=== PATIENT | female | born 1960 | race Caucasian/White ===

== ENCOUNTER 2020-04-07 17:56 | Outpatient (CLI) | payer SELFPAY ==
[2020-04-07 20:23] LABS: Estmated Average Glucose 249; Hemoglobin A1C 10.3 % (4.0-6.0)
[2020-04-07 20:30] LABS: Alanine Aminotransferase 12 U/L (0-33); Albumin Level 4.6 g/dL (3.5-5.2); Alkaline Phosphatase 65 IU/L (35-105); Anion Gap 19.9 (5-19); Aspartate Amino Transferase 17 U/L (0-32); Blood Urea Nitrogen 12 mg/dL (6-20); Calcium 10.6 mg/dL (8.5-10.5); Carbon Dioxide 25 mmol/L (22-29); Chloride 97 mmol/L (98-107); Chol HDL Ratio 2.87 mg/dL (0.0-4.40); Cholesterol 132 mg/dL (0-200); Globulin 3.3 g/dL (1.3-4.6); Glomerular Filtration Rate 73.7 mL/min (90-130); Glucose 168 mg/dL (65-115); HDL Cholesterol 46 mg/dL (60-100); LDL Cholesterol Calculated 49 mg/dL (50-129); LDL HDL Ratio 1.07 RATIO (0.00-3.22); Osmolality Calculated 286 mOsm/kg (285-295); Potassium 3.9 mmol/L (3.5-5.1); Sodium 138 mmol/L (136-145); Thyroid Stimulating Hormone 2.46 uIU/mL (0.27-4.20); Total Bilirubin 0.4 mg/dL (0.15-1.2); Total Protein 7.9 g/dL (6.6-8.7); Triglycerides 185 mg/dL (0-150)
== END 2020-04-07 17:57 | disposition home or self-care (01) ==
LOC: LAB 17:57
PROVIDERS: Visit Provider General Practice
DX: E11.9 Type 2 diabetes mellitus without complications (principal); E78.5 Hyperlipidemia, unspecified
CPT/HCPCS: 80053; 80061; 83036; 84443

== ENCOUNTER 2020-08-04 15:41 | Outpatient (CLI) | payer SELFPAY ==
[2020-08-04 16:31] LABS: Estmated Average Glucose 209; Hemoglobin A1C 8.9 % (4.0-6.0)
[2020-08-04 16:32] LABS: Alanine Aminotransferase 13 U/L (0-33); Albumin Level 4.3 g/dL (3.5-5.2); Alkaline Phosphatase 66 IU/L (35-105); Anion Gap 16.9 (5-19); Aspartate Amino Transferase 19 U/L (0-32); Blood Urea Nitrogen 11 mg/dL (6-20); Calcium 9.3 mg/dL (8.5-10.5); Carbon Dioxide 26 mmol/L (22-29); Chloride 101 mmol/L (98-107); Chol HDL Ratio 2.47 mg/dL (0.0-4.40); Cholesterol 116 mg/dL (0-200); Globulin 3.2 g/dL (1.3-4.6); Glomerular Filtration Rate 85.6 mL/min (90-130); Glucose 231 mg/dL (65-115); HDL Cholesterol 47 mg/dL (60-100); LDL Cholesterol Calculated 30 mg/dL (50-129); LDL HDL Ratio 0.64 RATIO (0.00-3.22); Osmolality Calculated 297 mOsm/kg (285-295); Potassium 3.9 mmol/L (3.5-5.1); Sodium 140 mmol/L (136-145); Total Bilirubin 0.3 mg/dL (0.15-1.2); Total Protein 7.5 g/dL (6.6-8.7); Triglycerides 196 mg/dL (0-150)
== END 2020-08-04 15:42 | disposition home or self-care (01) ==
LOC: LAB 15:43
PROVIDERS: Visit Provider General Practice
DX: E11.9 Type 2 diabetes mellitus without complications (principal)
CPT/HCPCS: 80053; 80061; 83036; 84443

== ENCOUNTER 2022-04-25 13:41 | Outpatient (CLI) | payer MEDICAID, SELFPAY ==
--- NOTE | 2022-04-25 13:49 | MM_ITS ---
WS: [id number] Bilateral screening 3D tomosynthesis digital mammogram, 04/25/2022 Clinical Data: SCREEN Comparison: 09/26/2010. Findings: The breast parenchymal pattern shows fibroglandular tissue. No spiculated masses or clustered calcifi cations are seen. There are no secondary signs of carcinoma. MM/[place] [id number] Impression: 1. Negative bilateral mammogram unchanged. 2. Recommend annual screening mammograms. BIRADS: 1-Negative FOLLOW UP: 1 Year Follow-up The CAD dump grounds checker was used.
== END 2022-04-25 13:42 | disposition home or self-care (01) ==
LOC: RAD 13:43
PROVIDERS: PCP Family Medicine; Visit Provider Family Medicine
DX: Z12.31 Encounter for screening mammogram for malignant neoplasm of breast (principal)
CPT/HCPCS: 77063; 77067

== ENCOUNTER 2023-05-02 07:27 | Outpatient (CLI) | payer MEDICAID, SELFPAY ==
--- NOTE | 2023-05-02 07:44 | MM_ITS ---
WS: [id number] BILATERAL SCREENING DIGITAL TOMOSYNTHESIS MAMMOGRAM WITH CAD HISTORY: SCREENING COMPARISON: 04/25/2022, 09/26/2010 Bilateral CC and MLO views with tomosynthesis and synthetic mammography submitted. Computer aided det ection analyzed. Breast composition: There are scattered areas of fibroglandular density. No suspicious masses, microc alcifications or architectural distortion. MM/[id number] IMPRESSION: BI-RADS: 1-Negative FOLLOW UP: 1 Year Follow-up
== END 2023-05-02 07:28 | disposition home or self-care (01) ==
PROVIDERS: PCP Family Medicine; Visit Provider Family Medicine
DX: Z12.31 Encounter for screening mammogram for malignant neoplasm of breast (principal)
CPT/HCPCS: 77063; 77067

== ENCOUNTER 2023-05-18 11:57 | Emergency (ER) | payer MEDICAID, SELFPAY ==
[2023-05-18 12:00] VITALS: BP 183/80; PULSE 70; RESP 15; O2SAT 97
--- NOTE | 2023-05-18 12:20 | XRR_ITS ---
PROCEDURE INFORMATION: Exam: XR Chest Exam date and time: 05/18/2023 12:28 PM Age: 63 years old Clinical indication: Pain; Angina pectoris; Additional info: Chest pain TECHNIQUE: Imaging protocol: Radiologic exam of the chest. Views: 1 view. COMPARISON: CR XR thoracic spine 3V* [id number] 03/05/2019 7:14 PM FINDINGS: Lungs: Unremarkable. No consolidation. Pleural spaces: Unremarkable. No pleural effusion. No pneumothorax. Heart/Mediastinum: Unremarkable. No cardiomegaly. Bones/joints: Unremarkable. XR/XR chest 1V portable [id number] IMPRESSION: No acute findings.
--- NOTE | 2023-05-18 12:32 | ED_ITS ---
HPI - Neck Pain/Injury General: Chief Complaint: Neck Pain/Injury Stated Complaint: Left Arm and into chest pain Time Seen by Provider: 05/18/23 12:18 History of Present Illness: This patient is a 63 year old presenting with left arm numbness that goes up into her left chest and left neck. This started last night and has gotten worse. She has had numbness in her left arm from time to time, but never in her chest or neck. She also has a headache and just doesn't feel right. She feels extremely tired. She has diabetes, and her father of a heart attack in his 60's. She is on medication for cholesterol. She used to be on BP medicine, but says that her BP got too low and her doctor took her off BP medicine about three years ago. 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 She has not seen a doctor about the numbness in her arm. She also gets a fluttering feeling in the left rib area sometimes. [facility] ED PFSH: Medical History (Updated 05/18/23 @ 17:29 by Christine Washburn MD) Type 2 diabetes mellitus Family History (Updated 10/16/21 @ 09:49 by LIN Serrano) Mother Cancer Social History (Updated 10/19/21 @ 14:56 by LIN Serrano) Smoking and tobacco status: former smoker Adopted: No Marital status: Number of children: 5 service: No Physical Exam Const: COMMON NORMALS: no acute distress, patient oriented x3, no limitations and alert GENERAL APPEARANCE: cooperative and comfortable HENMT: HEAD & SCALP: normal to inspection FACE & SINUS: normal facial exam Eye: GENERAL EYE: appearance normal, both eyes and all related structures Neck/C-Spine: COMMON NORMALS: supple, no meningeal signs and no JVD Chest: COMMONS NORMALS: normal inspection of the chest Resp: COMMON NORMALS: normal respiratory effort, No use of accessory muscles and clear to auscultation bilaterally AUSCULTATION: clear to auscultation bilaterally Cardio: COMMON NORMALS: no JVD, regular rate, regular rhythm and No murmurs present (Cardio) RATE: regular rate RHYTHM: regular rhythm GI: COMMON NORMALS: Normal to inspection, nondistended, normoactive bowel sounds present, Soft to palpation and non-tender INSPECTION: Yes normal to inspection AUSCULTATION: Yes normoactive bowel sounds PALPATION: Yes Soft to palpation Back/Pelvis: COMMON NORMALS: thoracic and lumbar spine normal to inspection Extremity: COMMON NORMALS: normal to inspection Neuro: COMMON NORMALS: patient oriented x3, moves all extremities, no focal motor deficits and no sensory deficits noted SENSORIUM/ORIENTATION: Yes alert MENINGEAL SIGNS: Yes no meningeal signs Psych: COMMON NORMALS: mental status grossly normal, cooperative and normal affect Skin: COMMON NORMALS: no rashes or lesions noted and turgor normal GENERAL SKIN EXAM: no rashes or lesions noted and turgor normal Course Vital Signs: Vital signs: Vital Signs Pulse Rate 64 05/18/23 17:43 Respiratory Rate 16 05/18/23 17:43 Blood Pressure 154/82 05/18/23 17:43 Pulse Oximetry 98 05/18/23 17:43 Oxygen Delivery Me thod Room Air 05/18/23 17:38 MDM - Neck Pain/Injury Medical Decision Making 63 year old with multiple cardiac risk factors, and symptoms that could be related to cardiac ischemia. 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 EKG, troponins, CXR, baseline labs. Patient with normal troponins, CXR, labs. We discussed outpatient follow up for discussion of possible cardiac work up - given her risk factors - as well as further evaluation and treatment of her left arm symptoms. There is no neuro component to it today and I don't think that a CT or MR is needed tonight. Lab Data 05/18/23 12:38 05/18/23 13:09 Laboratory Results WBC 8.1 10^3/uL (4.0-10.0) 05/18/23 12:38 RBC 4.77 10^6/uL (4.1-5.3) 05/18/23 12:38 Hgb 12.9 g/dL (11.5-15.3) 05/18/23 12:38 Hct 43.8 % (37.0-47.0) 05/18/23 12:38 MCV 91.8 fl (81-99) 05/18/23 12:38 MCH 27.0 pg (28.0-34.0) L 05/18/23 12:38 MCHC 29.5 g/dL (30.0-36.0) L 05/18/23 12:38 RDW 14.3 % (12.1-15.1) 05/18/23 12:38 Plt Count 280 10^3/cmm (130-400) 05/18/23 12:38 MPV 10.1 fL (7.4-10.4) 05/18/23 12:38 Neut % (Auto) 42.7 % 05/18/23 12:38 Lymph % (Auto) 46.9 % 05/18/23 12:38 [place] % (Auto) 7.4 % 05/18/23 12:38 Eos % (Auto) 2.1 % 05/18/23 12:38 Baso % (Auto) 0.7 % 05/18/23 12:38 Neut # (Auto) 3.46 10^3/uL (1.8-7.7) 05/18/23 12:38 Lymph # (Auto) 3.8 10^3/uL (0.8-4.8) 05/18/23 12:38 [place] # (Auto) 0.6 10^3/uL (0.2-0.9) 05/18/23 12:38 Eos # (Auto) 0.2 10^3/uL (0.0-0.8) 05/18/23 12:38 Baso # (Auto) 0.1 10^3/uL (0.0-0.1) 05/18/23 12:38 Nucleated RBC % (auto) 0 % 05/18/23 12:38 Nucleated RBCs # 0.0 /100WBC 05/18/23 12:38 Sodium 136 mmol/L (136-145) 05/18/23 13:09 Potassium 3.6 mmol/L (3.5-5.1) 05/18/23 13:09 Chloride 99 mmol/L (98-107) 05/18/23 13:09 Carbon Dioxide 24 mmol/L (22-29) 05/18/23 13:09 Anion Gap 16.6 (5-19) 05/18/23 13:09 BUN 8 mg/dL (8-23) 05/18/23 13:09 Creatinine 0.7 mg/dL (0.5-0.9) 05/18/23 13:09 GFR Calculation 84.8 mL/min (90-130) L 05/18/23 13:09 Glucose 72 mg/dL (65-115) 05/18/23 13:09 Calculated Osmolality 279 mOsm/kg (285-295) L 05/18/23 13:09 Calcium 8.7 mg/dL (8.5-10.5) 05/18/23 13:09 Total Bilirubin 0.3 mg/dL (0.15-1.2) 05/18/23 13:09 AST 16 U/L (0-32) 05/18/23 13:09 ALT 11 U/L (0-33) 05/18/23 13:09 Alkaline Phosphatase 72 U/L (35-105) 05/18/23 13:09 Troponin T Baseline 7 ng/L (0-10) 05/18/23 13:09 Troponin T 120 Minute 7.60 ng/L (0-10) 05/18/23 15:04 Delta Troponin T 0.60 ABS# (0-10) 05/18/23 15:04 Total Protein 7.2 g/dL (6.6-8.7) 05/18/23 13:09 Albumin 4.0 g/dL (3.5-5.2) 05/18/23 13:09 Globulin 3.2 g/dL (1.3-4.6) 05/18/23 13:09 Lipase 123 U/L (13-60) H 05/18/23 13:09 Discharge Plan Discharge Patient Disposition: Home Clinical Impression: Chest pain, Type 2 diabetes mellitus, Cervical radiculopathy Condition: Stable Prescriptions: No Action cinnamon bark [Cinnamon] 500 mg capsule 500 mg PO BID aspirin 81 mg tablet,chewable 81 mg PO DAILY atorvastatin 40 mg tablet 40 mg PO DAILY glipizide 10 mg tablet 10 mg PO DAILY omeprazole 20 mg capsule,delayed release(DR/EC) 20 mg PO DAILY Januvia 100 mg tablet 100 mg PO DAILY Qty: 90 3RF Invokana 300 mg tablet 300 mg PO DAILY Qty: 90 3RF metformin 1,000 mg tablet 1,000 mg PO BID Discharge Orders: Discharge ED (Routine); Ordered 05/18/23 Ordered By: Christine Washburn Referrals: Jocelyn Dawkins MD [Primary Care Provider] - Patient Instructions: Opioid Safety, Pain Management Activity Restrictions/Additional Instructions: Follow up with your PCP for further evaluation of your arm numbness and possibly a cardiac evaluation and stress test. Coding Level of Care Code ED Cdl Instructor for Maylin Paul
[2023-05-18 12:45] VITALS: BP 187/86; PULSE 78; RESP 19; O2SAT 97
--- NOTE | 2023-05-18 12:45 | ECG_ITS ---
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 Measurements Intervals [place] Rate: 78 P: 48 [place]: 134 QRS: -45 QRSD: 93 T: 28 QT: 399 QTc: 456 Interpretive Statements SINUS RHYTHM LOW QRS VOLTAGE IN PRECORDIAL LEADS [QRS DEFLECTION < 1.0 mV IN CHEST LEADS] LEFT ANTERIOR FASCICULAR BLOCK [QRS AXIS <= -45, QR IN I, RS IN II] MINIMAL VOLTAGE CRITERIA FOR LVH, CONSIDER NORMAL VARIANT [MEETS CRITERIA IN ONE OF: R(aVL), S(V1), R(V5), R(V5/V6)+S(V1)] POSSIBLE ANTERIOR MYOCARDIAL INFARCTION , PROBABLY OLD [30 ms Q WAVE IN V3/V4, OR R < 0.2 mV IN V4] No previous ECG available for comparison Electronically Signed On 05-19-2023 9:41:25 CDT by Mitchell Villeda M.D. [id number]
[2023-05-18 12:54] LABS: Basophils # 0.1 10^3/uL (0.0-0.1); Basophils % 0.7 %; Eosinophils # 0.2 10^3/uL (0.0-0.8); Eosinophils % 2.1 %; Hematocrit 43.8 % (37.0-47.0); Hemoglobin 12.9 g/dL (11.5-15.3); Lymphocytes # 3.8 10^3/uL (0.8-4.8); Lymphocytes % 46.9 %; Mean Corpuscular HGB Conc 29.5 g/dL (30.0-36.0); Mean Corpuscular Volume 91.8 fl (81-99); Mean Platelet Volume 10.1 fL (7.4-10.4); Monocytes # 0.6 10^3/uL (0.2-0.9); Monocytes % 7.4 %; Neutrophils # 3.46 10^3/uL (1.8-7.7); Neutrophils % 42.7 %; Nucleated Red Blood Cells % 0 %; Platelet Count 280 10^3/cmm (130-400); Red Blood Count 4.77 10^6/uL (4.1-5.3); Red Cell Distribution Width 14.3 % (12.1-15.1); White Blood Count 8.1 10^3/uL (4.0-10.0)
[2023-05-18 13:37] LABS: Alanine Aminotransferase 11 U/L (0-33); Alkaline Phosphatase 72 U/L (35-105); Aspartate Amino Transferase 16 U/L (0-32); Blood Urea Nitrogen 8 mg/dL (8-23); Calcium 8.7 mg/dL (8.5-10.5); Carbon Dioxide 24 mmol/L (22-29); Chloride 99 mmol/L (98-107); Globulin 3.2 g/dL (1.3-4.6); Glomerular Filtration Rate 84.8 mL/min (90-130); Glucose 72 mg/dL (65-115); Lipase 123 U/L (13-60); Osmolality Calculated 279 mOsm/kg (285-295); Sodium 136 mmol/L (136-145); Total Bilirubin 0.3 mg/dL (0.15-1.2); Total Protein 7.2 g/dL (6.6-8.7)
[2023-05-18 13:38] LABS: Troponin(5th) Baseline 7 ng/L (0-10)
[2023-05-18 13:39] LABS: Anion Gap 16.6 (5-19); Potassium 3.6 mmol/L (3.5-5.1)
[2023-05-18 14:10] VITALS: BP 150/77; PULSE 65; RESP 17; O2SAT 97
--- NOTE | 2023-05-18 14:32 | ECG_ITS ---
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 Measurements Intervals [place] Rate: 67 P: -68 [place]: 90 QRS: -43 QRSD: 91 T: -14 QT: 391 QTc: 413 Interpretive Statements Low atrial RHYTHM LEFT AXIS DEVIATION [QRS AXIS < -30] LOW QRS VOLTAGE IN PRECORDIAL LEADS [QRS DEFLECTION < 1.0 mV IN CHEST LEADS] MINIMAL VOLTAGE CRITERIA FOR LVH, CONSIDER NORMAL VARIANT [MEETS CRITERIA IN ONE OF: R(aVL), S(V1), R(V5), R(V5/V6)+S(V1)] POSSIBLE ANTERIOR MYOCARDIAL INFARCTION , PROBABLY OLD [30 ms Q WAVE IN V3/V4, OR R < 0.2 mV IN V4] Compared to ECG 05/18/2023 12:45:23 Low atrial rhythm now present Left-axis deviation now present Sinus rhythm no longer present Left anterior fascicular block no longer present Myocardial infarct finding still present Electronically Signed On 05-19-2023 9:45:20 CDT by Mitchell Villeda M.D. [email or web address] centerCare [email or web address]/store/[id number]
[2023-05-18 16:12] VITALS: BP 133/76; PULSE 61; RESP 14; O2SAT 99
--- NOTE | 2023-05-18 16:43 | ECG_ITS ---
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 Measurements Intervals [place] Rate: 61 P: 46 [place]: 145 QRS: -42 QRSD: 94 T: -6 QT: 413 QTc: 416 Interpretive Statements SINUS RHYTHM MINIMAL VOLTAGE CRITERIA FOR LVH, CONSIDER NORMAL VARIANT [MEETS CRITERIA IN ONE OF: R(aVL), S(V1), R(V5), R(V5/V6)+S(V1)] POSSIBLE ANTERIOR MYOCARDIAL INFARCTION , PROBABLY OLD [30 ms Q WAVE IN V3/V4, OR R < 0.2 mV IN V4] INFERIOR MYOCARDIAL INFARCTION , PROBABLY OLD [40+ ms Q WAVE AND/OR ST/T ABNORMALITY IN II/aVF] Compared to ECG 05/18/2023 14:32:49 Left-axis deviation no longer present Myocardial infarct finding still present Electronically Signed On 05-19-2023 9:47:11 CDT by Mitchell Villeda M.D. [email or web address] [email or web address].Stepsss/store/OM/[id number]
[2023-05-18 17:38] VITALS: BP 154/82; PULSE 64; RESP 16; O2SAT 98
[2023-05-18 17:43] VITALS: BP 154/82; PULSE 64; RESP 16; O2SAT 98
== END 2023-05-18 17:45 | disposition home or self-care (01) ==
PROVIDERS: Emergency Provider Emergency Medicine; PCP Family Medicine
DX: M54.12 Radiculopathy, cervical region (principal); R07.9 Chest pain, unspecified; E11.9 Type 2 diabetes mellitus without complications; Z79.82 Long term (current) use of aspirin; Z79.84 Long term (current) use of oral hypoglycemic drugs; Z87.891 Personal history of nicotine dependence
CPT/HCPCS: 71045; 80053; 83690; 84484; 85025; 93005; 99285

== ENCOUNTER 2023-06-06 11:48 | Outpatient (CLI) | payer MEDICAID, SELFPAY ==
--- NOTE | 2023-06-06 | ECG_ITS ---
[facility] Test Date: 2023-06-06 Pat Name: Carolin Kelly Department: Room: Gender: Female Hunter Guide: : 1960 Requested By: Jocelyn Nichole Order Number: [id number] Montenegro MD: Luis Gutiérrez M.D. Interpretive Statements NAME OF STUDY: TREADMILL STRESS TEST INDICATION: [Chest Pain, ] EXERCISE DATA: The patient was exercised by Will protocol. Baseline heart rate was 74 beats per minute. Baseline blood pressure was 145/77 millimeters of mercury. Target heart rate was 134 beats per minute. Maximum heart rate achieved was 158, which was 117% of the target heart rate. Maximum blood pressure was 210/54 millimeters of mercury. Total exercise time was 5 minutes 19 minutes. Maximum METs achieved was 7. The reason for ending the test was completion of protocol. The patient complained of shortness of breath during the stress test, which then resolved at the end of the test. ELECTROCARDIOGRAM: BASELINE: Showed sinus rhythm, left axis deviation, no significant ST-T changes at the baseline noted. [] EXERCISE: At the peak exercise level, [] No significant ST-T changes suggestive of ischemia noted. [] RECOVERY: During the recovery period, heart rate dropped appropriately. No significant ST-T changes in the recovery suggestive of ischemia noted. [] CONCLUSION: 1. Exercise capacity is fair. 2. Heart rate response was appropriate 3. Blood pressure response was hypertensive 4. Symptoms not suggestive of ischemia. 5. Stress test negative for ischemia Electronically Signed On 07-02-2023 10:55:37 CDT by Luis Gutiérrez M.D. [email or web address].[employer]/store/OM/[id number]
[2023-06-06 12:17] VITALS: BMI 33.6
[2023-06-06 12:48] VITALS: BP 186/76; PULSE 83
== END 2023-06-06 11:49 | disposition home or self-care (01) ==
LOC: CDL 11:49
PROVIDERS: PCP Family Medicine; Visit Provider Family Medicine
DX: R07.9 Chest pain, unspecified (principal)
CPT/HCPCS: 93017

== ENCOUNTER 2024-03-24 15:20 | Inpatient (IN) | payer MEDICAID, SELFPAY ==
[2024-03-24] VITALS (10 sets, daily range): BP systolic 136–150; BP diastolic 61–70; PULSE 72–104; RESP 16–18; TEMP 37.1–39.6; O2SAT 94–98; BMI 30.4
--- NOTE | 2024-03-24 15:21 | XRR_ITS ---
PROCEDURE INFORMATION: Exam: XR Chest Exam date and time: 03/24/2024 3:41 PM Age: 63 years old Clinical indication: Cough and dyspnea; Additional info: Dyspnea/cough TECHNIQUE: Imaging protocol: Radiologic exam of the chest. Views: 1 view. COMPARISON: CR XR chest 1V portable [id number] 05/18/2023 12:28 PM FINDINGS: Lungs: Suboptimal pulmonary expansion with associated accentuation of bronchovascular markings. Pleural spaces: No pleural effusion or pneumothorax. Heart/Mediastinum: Unremarkable. Bones/joints: No significant pathology. XR/XR chest 1V portable [id number] IMPRESSION: No acute pathology or significant change given incomplete pulmonary expansion.
--- NOTE | 2024-03-24 15:23 | W.ED.GENADLT ---
HPI - General Adult General: Chief complaint: Back Pain/Injury Stated complaint: Weakness, Back pain, Fever Time Seen by Provider: 03/24/24 15:21 Source: patient Mode of arrival: EMS History of Present Illness: 61-year-old female presents emergency room with complaints of generalized weakness. Was seen in the local walk-in clinic was trying to go to the bathroom became weak complaining of lower abdominal pain, no back or flank pain. Denies dysuria urgency or frequency. She presents with a fever she fell 1 week ago in the bathroom was weak and progressively worse since then. Worsening low back pain. She reports abdominal pain for the last couple of weeks. History of recurrent UTIs. Presents with a fever today of 103.2. MD complaint: Suprapubic pain Severity: mild Relieving factors: none Exacerbating factors: none Associated symptoms: Deny chest pain, dyspnea or rash Review of Systems Const: Denies: fever(s) or chills Card: Denies: chest pain Resp: Denies: dyspnea GI: Denies: abdominal pain : Denies: dysuria, urinary frequency or urinary urgency Musc: Denies: neck pain or back pain Skin/Breast: Denies: rash PFSH ED PFSH: Medical History Type 2 diabetes mellitus Family History Mother Cancer Social History Smoking and tobacco/nicotine status: former use of tobacco/nicotine Adopted: No Marital status: Number of children: 5 service: No Physical Exam Const: COMMON NORMALS: no acute distress GENERAL APPEARANCE: cooperative and comfortable ORIENTATION/CONSCIOUSNESS: Yes awake, Yes oriented to person, Yes oriented to place and Yes oriented to time HENMT: COMMON NORMALS: normocephalic, atraumatic and hearing grossly normal bilaterally HEAD & SCALP: normocephalic and atraumatic Resp: COMMON NORMALS: normal respiratory effort, No retractions, No use of accessory muscles and clear to auscultation bilaterally AUSCULTATION: clear to auscultation bilaterally Cardio: COMMON NORMALS: regular rate, regular rhythm and No murmurs present (Cardio) RATE: regular rate RHYTHM: regular rhythm GI: COMMON NORMALS: Soft to palpation and No hepatosplenomegaly present AUSCULTATION: Yes normoactive bowel sounds PALPATION: Yes Soft to palpation, No Tenderness to palpation present (GI), No Guarding due to palpation present (GI) and Yes No hepatosplenomegaly present Extremity: COMMON NORMALS: normal to inspection, capillary refill normal, no clubbing, cyanosis or edema, no calf tenderness and no pedal edema Neuro: SENSORIUM/ORIENTATION: Yes oriented to person, Yes oriented to place and Yes oriented to time Skin: COMMON NORMALS: no rashes or lesions noted GENERAL SKIN EXAM: no rashes or lesions noted Course Vital Signs: Vital signs: Vital Signs Temperature 103.2 F H 03/24/24 15:21 Pulse Rate 96 03/24/24 17:02 Respiratory Rate 18 03/24/24 15:40 Blood Pressure 145/66 03/24/24 17:02 Pulse Oximetry 96 03/24/24 17:02 Oxygen Delivery Me thod Room Air 03/24/24 17:02 [facility] - General Adult Medical Decision Making Patient has pyelonephritis with leukocytosis and radiographic findings consistent with pyelonephritis as well as a fever mildly elevated lactic acid slight hyponatremia. Cultures done patient has had fluid bolus started on IV Rocephin. Lab Data 03/24/24 15:10 03/24/24 15:10 Radiology Impressions Chest X-Ray 03/24/24 15:21 IMPRESSION: No acute pathology or significant change given incomplete pulmonary expansion. Abdomen/Pelvis CT 03/24/24 15:58 IMPRESSION: 1. Asymmetric infiltration of fat in the left perinephric and periureteral regions with mural thickening of the left renal pelvis. Findings suggesting possible upper urinary tract infection although component of residual changes from prior insult cannot be excluded. 2. Cholelithiasis. 3. Hepatic steatosis. 4. Large fat containing umbilical hernia. 5. Large amount of colonic stool. Laboratory Results WBC 15.61 10^3/uL (3.29-11.43) H 03/24/24 15:10 RBC 3.86 10^6/uL (3.85-5.65) 03/24/24 15:10 Hgb 10.30 g/dL (11.27-16.99) L 03/24/24 15:10 Hct 32.9 % (36-47) L 03/24/24 15:10 MCV 85.2 fl (85-98) 03/24/24 15:10 MCH 26.7 pg (27-33) L 03/24/24 15:10 MCHC 31.3 g/dL (30-55) 03/24/24 15:10 RDW 16.4 % (12.1-15.1) H 03/24/24 15:10 Plt Count 345 10^3/cmm (157-399) 03/24/24 15:10 MPV 9.1 fL (7.4-10.4) 03/24/24 15:10 Neut % (Auto) 78.1 % 03/24/24 15:10 Lymph % (Auto) 11.9 % 03/24/24 15:10 [place] % (Auto) 9.0 % 03/24/24 15:10 Eos % (Auto) 0.0 % 03/24/24 15:10 Baso % (Auto) 0.4 % 03/24/24 15:10 Neut # (Auto) 12.18 10^3/uL (1.8-7.7) H 03/24/24 15:10 Lymph # (Auto) 1.9 10^3/uL (0.8-4.8) 03/24/24 15:10 [place] # (Auto) 1.4 10^3/uL (0.2-0.9) H 03/24/24 15:10 Eos # (Auto) 0.0 10^3/uL (0.0-0.8) 03/24/24 15:10 Baso # (Auto) 0.1 10^3/uL (0.0-0.1) 03/24/24 15:10 Nucleated RBC % (auto) 0 % 03/24/24 15:10 Nucleated RBCs # 0.0 /100WBC 03/24/24 15:10 Sodium 132 mmol/L (136-145) L 03/24/24 15:10 Potassium 3.9 mmol/L (3.5-5.1) 03/24/24 15:10 Chloride 95 mmol/L (98-107) L 03/24/24 15:10 Carbon Dioxide 22 mmol/L (22-29) 03/24/24 15:10 Anion Gap 18.9 (5-19) 03/24/24 15:10 BUN 14 mg/dL (8-23) 03/24/24 15:10 Creatinine 1.0 mg/dL (0.5-0.9) H 03/24/24 15:10 GFR Calculation 56.2 mL/min (90-130) L 03/24/24 15:10 Glucose 148 mg/dL (65-115) H 03/24/24 15:10 Calculated Osmolality 277 mOsm/kg (285-295) L 03/24/24 15:10 Lactic Acid 2.5 mmol/L (0.5-2.2) H 03/24/24 15:10 Calcium 9.1 mg/dL (8.5-10.5) 03/24/24 15:10 Total Bilirubin 0.4 mg/dL (0.15-1.2) 03/24/24 15:10 AST 11 U/L (0-32) 03/24/24 15:10 ALT 9 U/L (0-33) 03/24/24 15:10 Alkaline Phosphatase 75 U/L (35-105) 03/24/24 15:10 Troponin T Baseline 12 ng/L (0-10) H 03/24/24 15:10 Total Protein 7.7 g/dL (6.6-8.7) 03/24/24 15:10 Albumin 3.8 g/dL (3.5-5.2) 03/24/24 15:10 Globulin 3.9 g/dL (1.3-4.6) 03/24/24 15:10 Lipase 19 U/L (13-60) 03/24/24 15:10 Urine Color Yellow (Yellow) 03/24/24 16:12 Urine Appearance Hazy (CLEAR) A 03/24/24 16:12 Urine pH 5 (5-7) 03/24/24 16:12 Ur Specific [place] 1.015 (1.005-1.030) 03/24/24 16:12 Urine Protein Trace (Negative) 03/24/24 16:12 Urine Glucose (UA) 4+ (Normal) H 03/24/24 16:12 Urine Ketones 1+ (Negative) H 03/24/24 16:12 Urine Blood 3+ (Negative) H 03/24/24 16:12 Urine Nitrate Positive (Negative) H 03/24/24 16:12 Urine Bilirubin Neg (Negative) 03/24/24 16:12 Urine Urobilinogen Norm mg/dL (Negative) 03/24/24 16:12 Ur Leukocyte Esterase 1+ (Negative) H 03/24/24 16:12 Urine RBC 0-4 /hpf (0-2) H 03/24/24 16:12 Urine WBC 40-55 /hpf (0-5) H 03/24/24 16:12 Ur Squamous Epith Cells 5-10 /hpf (0-5) H 03/24/24 16:12 Amorphous Sediment Not Reportable 03/24/24 16:12 Urine Bacteria 3+ /hpf (NONE) H 03/24/24 16:12 Urine Mucus Trace /hpf 03/24/24 16:12 All radiology interpretation(s) finalized by discharge Discharge Plan Discharge Patient Disposition: Admitted As Inpatient Clinical Impression: Pyelonephritis Prescriptions: No Action cinnamon bark [Cinnamon] 500 mg capsule 500 mg PO BID aspirin 81 mg tablet,chewable 81 mg PO DAILY atorvastatin 40 mg tablet 40 mg PO DAILY glipizide 10 mg tablet 10 mg PO DAILY omeprazole 20 mg capsule,delayed release(DR/EC) 20 mg PO DAILY Januvia 100 mg tablet 100 mg PO DAILY Qty: 90 3RF Invokana 300 mg tablet 300 mg PO DAILY Qty: 90 3RF metformin 1,000 mg tablet 1,000 mg PO BID Referrals: Jocelyn Dawkins MD [Primary Care Provider] - Coding Level of Care Code ED Pressroom Worker for Maylin Paul
[2024-03-24 15:41] LABS: Basophils # 0.1 10^3/uL (0.0-0.1); Basophils % 0.4 %; Hematocrit 32.9 % (36-47); Lymphocytes # 1.9 10^3/uL (0.8-4.8); Lymphocytes % 11.9 %; Mean Corpuscular HGB Conc 31.3 g/dL (30-55); Mean Corpuscular Hemoglobin 26.7 pg (27-33); Mean Corpuscular Volume 85.2 fl (85-98); Mean Platelet Volume 9.1 fL (7.4-10.4); Monocytes # 1.4 10^3/uL (0.2-0.9); Neutrophils # 12.18 10^3/uL (1.8-7.7); Neutrophils % 78.1 %; Nucleated Red Blood Cells % 0 %; Platelet Count 345 10^3/cmm (157-399); Red Blood Count 3.86 10^6/uL (3.85-5.65); Red Cell Distribution Width 16.4 % (12.1-15.1); White Blood Count 15.61 10^3/uL (3.29-11.43)
--- NOTE | 2024-03-24 15:58 | ECG_ITS ---
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 Measurements Intervals [place] Rate: 98 P: 53 [place]: 134 QRS: -43 QRSD: 89 T: 28 QT: 338 QTc: 432 Interpretive Statements SINUS RHYTHM LEFT AXIS DEVIATION [QRS AXIS < -30] LOW QRS VOLTAGE IN PRECORDIAL LEADS [QRS DEFLECTION < 1.0 mV IN CHEST LEADS] POSSIBLE ANTERIOR MYOCARDIAL INFARCTION , PROBABLY OLD [30 ms Q WAVE IN V3/V4, OR R < 0.2 mV IN V4] Compared to ECG 05/18/2023 16:43:11 Left-axis deviation now present Low QRS voltage now present Myocardial infarct finding still present Electronically Signed On 03-24-2024 17:46:57 CDT by Luis Gutiérrez M.D. [email or web address].[email or web address]/store/[id number]
--- NOTE | 2024-03-24 15:58 | CTR_ITS ---
PROCEDURE INFORMATION: Exam: CT Abdomen And Pelvis Without Contrast Exam date and time: 03/24/2024 4:13 PM Age: 63 years old Clinical indication: Abdominal pain; Localized; Lower; Prior surgery; Surgery date: 6+ months; Surgery type: Tubal; Additional info: Abdominal pain/fever TECHNIQUE: Imaging protocol: Computed tomography of the abdomen and pelvis without contrast. Radiation optimization: All CT scans at this facility use at least one of these dose optimization techniques: automated exposure control; mA and/or kV adjustment per patient size (includes targeted exams where dose is matched to clinical indication); or iterative reconstruction. COMPARISON: CR XR chest 1V portable [id number] 03/24/2024 3:41 PM RADIATION DOSE METRICS: Total DLP (mGy-cm): 728.28 FINDINGS: Lungs: Mild basilar scar versus atelectasis. Esophagus: Mural thickening distal thoracic esophagus. Liver: Hepatic steatosis. Hepatic cysts and indeterminate subcentimeter hepatic hypodensities are present. Gallbladder and bile ducts: Cholelithiasis. No biliary dilatation. Pancreas: No significant pancreatic pathology. Spleen: No significant splenic pathology. Adrenal glands: Low-attenuation adrenal thickening in a pattern most consistent with adenomatous changes. Kidneys and ureters: Right kidney is unremarkable. There is asymmetric left perinephric fat infiltration and left periureteral fat infiltration without evidence of calculus or obstruction. There is mural thickening of the left renal pelvis without discrete mass. Stomach and bowel: Large amount of colonic stool. Appendix: Appendix within normal limits. Intraperitoneal space: No ascites. Vasculature: No abdominal aortic aneurysm. Lymph nodes: No evidence of lymphadenopathy. Urinary bladder: Incomplete bladder distension limiting assessment of the wall. Reproductive: No significant uterine pathology. No significant adnexal pathology. Bones/joints: Grade 1 anterolisthesis of L4 on L5 with degenerative facet disease lower lumbar spine. Soft tissues: Large fat containing umbilical hernia. CT/CT abdomen pelvis wo con [id number] IMPRESSION: 1. Asymmetric infiltration of fat in the left perinephric and periureteral regions with mural thickening of the left renal pelvis. Findings suggesting possible upper urinary tract infection although component of residual changes from prior insult cannot be excluded. 2. Cholelithiasis. 3. Hepatic steatosis. 4. Large fat containing umbilical hernia. 5. Large amount of colonic stool.
[2024-03-24 15:59] LABS: Alanine Aminotransferase 9 U/L (0-33); Albumin Level 3.8 g/dL (3.5-5.2); Alkaline Phosphatase 75 U/L (35-105); Anion Gap 18.9 (5-19); Aspartate Amino Transferase 11 U/L (0-32); Blood Urea Nitrogen 14 mg/dL (8-23); Calcium 9.1 mg/dL (8.5-10.5); Carbon Dioxide 22 mmol/L (22-29); Chloride 95 mmol/L (98-107); Creatinine Clr Calc Pharmacy 59.7938; Globulin 3.9 g/dL (1.3-4.6); Glomerular Filtration Rate 56.2 mL/min (90-130); Glucose 148 mg/dL (65-115); Lipase 19 U/L (13-60); Osmolality Calculated 277 mOsm/kg (285-295); Potassium 3.9 mmol/L (3.5-5.1); Sodium 132 mmol/L (136-145); Total Bilirubin 0.4 mg/dL (0.15-1.2); Total Protein 7.7 g/dL (6.6-8.7)
[2024-03-24 16:00] LABS: Lactic Sepsis W/Reflex 2.5 mmol/L (0.5-2.2); Troponin(5th) Baseline 12 ng/L (0-10)
[2024-03-24 16:46] LABS: Add Urine Microscopic? YES; Bilirubin Urine Neg (Negative); Blood Urine 3+ (Negative); Glucose Urine UA 4+ (Normal); Ketones Urine 1+ (Negative); Leukocyte Esterase Urine 1+ (Negative); Nitrate Urine Positive (Negative); Protein Urine Trace (Negative); Specific Gravity, Urine 1.015 (1.005-1.030); Urine Appearance Hazy (CLEAR); Urine Color Yellow (Yellow); Urobilinogen Urine Norm (Negative); pH Urine 5 (5-7)
[2024-03-24 16:57] LABS: RBC Urine 0-4 /hpf (0-2); WBC Urine 40-55 /hpf (0-5)
[2024-03-24 16:58] LABS: Add Urine Culture? Yes; Bacteria Urine 3+ /hpf; Mucus Urine TRACE /hpf
[2024-03-24] MEDS: cefTRIAXone 2,000 MG in sodium chloride 0.9% (plus) 50 ML 100 MG IV (17:03)
[2024-03-24 17:25] LABS: Reflex Lactate Order REFLEX LACTIC ORDERD
--- NOTE | 2024-03-24 17:37 | ECG_ITS ---
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 Measurements Intervals [place] Rate: 87 P: 57 NM: 130 QRS: -46 QRSD: 94 T: 29 QT: 373 QTc: 449 Interpretive Statements SINUS RHYTHM PATTERN CONSISTENT WITH PULMONARY DISEASE LEFT ANTERIOR FASCICULAR BLOCK [QRS AXIS <= -45, QR IN I, RS IN II] Compared to ECG 03/24/2024 15:58:00 Left anterior fascicular block now present Left-axis deviation no longer present Myocardial infarct finding no longer present Electronically Signed On 03-24-2024 17:48:16 CDT by Luis Gutiérrez M.D. [id number]
--- NOTE | 2024-03-24 17:42 | P.HP_ITS ---
Providers/Chief Complaint 2 Primary Care Provider: Jocelyn Dawkins MD Chief Complaint: Weakness, Back pain, Fever History of Present Illness Carolin Kelly is a 63 year old female with past medical history of type 2 diabetes mellitus presented to the ER because of generalized weakness, tiredness along with recurrent episodes of falls happening over the last 1 week along with back pain and mild dysuria. Patient states generally she is pretty independent able to take care of her ADLs but for last 1 week has been gradually getting weaker with few episodes of fall. Denies any head injuries or weakness in any of the arms. Complaining of lower back pain. Denies any nausea, vomiting, headache, dizziness, diarrhea, dysuria, poor appetite no recent sick contacts. In the ER there was a concern for UTI pyelonephritis hence medicine was consulted. She was found to have a fever of more than 103.2 Fahrenheit, leukocytosis. She has been given IV ceftriaxone Tylenol in the ER. Review of Systems 2 General: Reports: 10 or more systems reviewed and unremarkable except in HPI and below Const: Denies: fever(s), chills, body aches, change in appetite, change in weight, malaise, night sweats, diaphoresis, change in sleep pattern, daytime sleepiness or snoring Eyes: Denies: change in vision, blurry vision, photophobia, eye discomfort or eye discharge ENMT: Denies: throat pain, enlarged tonsils, hoarseness, mouth pain, oral sores, dry mouth, tinnitus, nasal congestion or post nasal drip Card: Denies: chest pain, palpitations, irregular heart rhythm, edema, swelling of feet/ankles, lightheadedness, syncope, pre-syncope, dyspnea on exertion, orthopnea, leg pain with exertion or acrocyanosis Resp: Denies: dyspnea, productive cough, non-productive cough, wheezing, stridor, pain on inspiration, change in phlegm color, hemoptysis or chest congestion GI: Denies: abdominal pain, nausea, vomiting, hematemesis, coffee ground emesis, dysphagia, heartburn, diarrhea, constipation, bloating, GI cramping, change in bowel habits, pain on defecation, hematochezia or melena : Denies: flank pain, dysuria, urinary frequency, urinary urgency, urinary hesitancy, nocturia or hematuria Musc: Denies: neck pain, back pain, extremity pain, joint pain, joint swelling, joint redness, joint stiffness or limited range of motion Neuro: Denies: headache(s), numbness in extremities, weakness in extremities, sensory changes, lack of coordination, difficulty walking, frequent falls, dizziness, vertigo, confusion, Slurred speech present, difficulty communicating thoughts or seizure-like activity Psych: Denies: anxiety, depression, mood swings, panic attacks, hopelessness or irritability Endo: Denies: polyuria, polydipsia, tired all the time, cold intolerance, excessive sweating, flushing or heat intolerance Mario/Lymph: Denies: easy bruising or easy bleeding All/Imm: Denies: tongue swelling, facial swelling or acute wheezing Medications/Allergies Home Medications Medication Instructions Recorded Confirmed Last Taken Type aspirin 81 mg chewable tablet 81 mg PO DAILY 10/16/21 05/18/23 05/18/23 History atorvastatin 40 mg tablet 40 mg PO DAILY 10/16/21 05/18/23 05/18/23 History cinnamon bark 500 mg capsule 500 mg PO BID 10/16/21 05/18/23 05/18/23 History (Cinnamon) glipizide 10 mg tablet 10 mg PO DAILY 10/16/21 05/18/23 05/18/23 History canagliflozin 300 mg tablet 300 mg PO DAILY #90 tabs 10/19/21 05/18/23 05/18/23 Rx (Invokana) omeprazole 20 mg capsule,delayed 20 mg PO DAILY 10/19/21 05/18/23 05/18/23 History release sitagliptin phosphate 100 mg 100 mg PO DAILY #90 tabs 10/19/21 05/18/23 05/18/23 Rx tablet (Januvia) metformin 1,000 mg tablet 1,000 mg PO BID 05/18/23 05/18/23 05/18/23 History Allergies Allergy/AdvReac Type Severity Reaction Status Date / Time Sulfa (Sulfonamide Allergy Severe rash Verified 05/18/23 12:06 Antibiotics) PFSH Acute 2 PFSH: Medical History Type 2 diabetes mellitus Family History Mother Cancer Social History Smoking and tobacco/nicotine status: former use of tobacco/nicotine Adopted: No Marital status: Number of children: 5 service: No Vitals/I&O/Wt Last Vital Signs Temp 103.2 F H 03/24/24 15:21 Pulse 96 03/24/24 17:02 Resp 18 03/24/24 15:40 BP 145/66 03/24/24 17:02 Pulse Ox 96 03/24/24 17:02 O2 Del Method Room Air 03/24/24 17:02 Weight last 48 hrs Weight 80.286 kg Physical Exam 2 Narrative: General: No acute distress, AO x3 HEENT: PERRLA, pupils bilaterally equal and reactive Chest: Normal vesicular breath sounds, no added sounds, equal good air entry bilaterally CVS: S1-S2 regular, no murmurs, no tachycardia, no gallops, no rubs Abdomen: Soft, nontender, no organomegaly, bowel sounds present Neuro: No focal deficits, no facial deformity, AO x3, power 5/5 in all limbs Quick SOFA Score: Respiratory Rate: 17 Blood Pressure: 144/69 Isaac Coma Scale: 15 qSOFA Score: 0 If qSOFA score 2 or greater, continue: Blood Pressure Mean: 94 Bilirubin (mg/dl): 0.4 Platelets (x10?/ml): 345 Creatinine (mg/dl): 1.0 Evaluation: Current stage of sepsis: sepsis Sepsis stage criteria used: CMS Sep-1 and Sepsis-3 Crystalloid fluids: less than 30 mL/kg crystalloid fluids ordered Blood cultures ordered: Yes Possible source: genitourinary Focused Exam: Vital signs: Temp Pulse Resp BP Pulse Ox O2 Del Method 03/24/24 20:40 98.7 F 75 17 144/69 98 03/24/24 20:19 80 17 138/70 98 03/24/24 18:03 89 136/61 97 Room Air 03/24/24 17:02 96 145/66 96 Room Air 03/24/24 15:40 104 H 18 145/66 94 Room Air 03/24/24 15:21 103.2 F H 99 16 150/68 96 Room Air Capillary refill: < 3 Seconds Peripheral pulse strength: 3+ Normal P eripheral pulse location: Radial Skin exam: Yes no rashes or lesions noted Date exam was performed: 03/24/24 Time exam was performed: 16:30 2 Sepsis Screen No Definite Risk 03/24/24 18:03 Respiratory Rate 17 breaths/min (12 - 18) 03/24/24 20:40 Blood Pressure 144/69 mmHg 03/24/24 20:40 [place] Coma Scale Score 15 03/24/24 20:42 Quick SOFA Score 0 03/24/24 22:23 SOFA Score: 2 Isaac Coma Scale Score 15 03/24/24 20:42 Blood Pressure Mean 94 mmHg 03/24/24 20:40 Total Bilirubin 0.4 mg/dL (0.15-1.2) 03/24/24 15:10 Platelet Count 345 10^3/cmm (157-399) 03/24/24 15:10 Creatinine 1.0 mg/dL (0.5-0.9) H 03/24/24 15:10 Data 03/24/24 15:10 03/24/24 15:10 Micro: Microbiology 03/24/24 16:25 Blood Culture - Preliminary Blood SPECIMEN COLLECTED 03/24/24 16:20 Blood Culture - Preliminary Blood SPECIMEN COLLECTED A&P Assessment and plan (1) Pyelonephritis: As seen on CT imaging done in the ER. Appreciate urinalysis. Check blood culture, urine culture. Empirically start patient IV ceftriaxone 1 g daily. Will de-escalate antibiotics as per culture results. (2) Sepsis: SIRS: Tachycardic, Febrile, Leukocytosis Source: UTI/pyelonephritis End organ damage: Acute kidney injury Lactic acid elevated. Normalizing after 2 hours. Patient did not receive full 30 mL/kg BW as patient has remained hemodynamically stable with lactate coming down with IV fluid at 75 cc/h. Monitor blood pressures. Keep mean artery pressure 65 mmHg. Blood culture, urine culture, procalcitonin, urine Legionella, bacterial antigen. De-escalate antibiotics as per culture results. (3) BOZENA (acute kidney injury): Baseline creatinine from 0.7. Currently elevated to 1.0. Most likely in setting of dehydration and sepsis. IV fluid as above. Monitor BMP daily for now. Medical reconciliation done for nephrotoxic drugs. (4) Adenovirus infection: Supportive care. Monitor oxygen saturation. If needed will start on nebulization treatment and steroids. (5) Fall: Most likely in setting of generalized weakness from UTI. Check respiratory viral panel. Physical therapy evaluation. Denies any head injuries. (6) Type 2 diabetes mellitus: Check A1c. Carb consistent diet Insulin sliding scale at low-dose protocol. Hold off on OHA's. (7) Lactic acid increased: (8) Weakness: Plan Full code Lovenox for DVT prophylaxis Carb consistent diet Protonix for PUD prophylaxis Attestations 2 Medical Necessity Statement*: Admission for more than 2 midnights for management of sepsis in setting of UTI/pyelonephritis, recurrent falls in setting of generalized weakness, adenovirus infection Diagnoses BOZENA (acute kidney injury) N17.9 Pyelonephritis N12 Sepsis A41.9 Lactic acid increased E87.20 Weakness R53.1 Fall W19.XXXA Adenovirus infection B34.0 Type 2 diabetes mellitus E11.9
[2024-03-24 17:46] LABS: Adenovirus Detected (NOT DETECT); Chlamydia Pneumoniae Not Detected (NOT DETECT); Coronavirus 229E,HKU1,NL63,OC4 Not Detected (NOT DETECT); Human Metapneumovirus Not Detected (NOT DETECT); Human Rhinovirus/Enterovirus Not Detected (NOT DETECT); Influenza A Not Detected (NOT DETECT); Influenza A H1 Not Detected (NOT DETECT); Influenza A H1-2009 Not Detected (NOT DETECT); Influenza A H3 Not Detected (NOT DETECT); Influenza B Not Detected (NOT DETECT); Mycoplasma Pneumoniae Not Detected (NOT DETECT); Parainfluenza Virus Type 1 Not Detected (NOT DETECT); Parainfluenza Virus Type 2 Not Detected (NOT DETECT); Parainfluenza Virus Type 3 Not Detected (NOT DETECT); Parainfluenza Virus Type 4 Not Detected (NOT DETECT); Respiratory Syncytial Virus A Not Detected (NOT DETECT); Respiratory Syncytial Virus B Not Detected (NOT DETECT); SARS-COV-2 Not Detected (NOT DETECT)
[2024-03-24] MEDS: acetaminophen 500 mg Tablet 1000 MG PO (18:15)
[2024-03-24 18:47] LABS: Troponin 5 2HR 9.86 ng/L (0-10)
[2024-03-24 18:48] LABS: Lactic Acid level (Lactate) 0.9 mmol/L (0.5-2.2)
[2024-03-24 18:49] LABS: Troponin 5 2HR Delta -2.14 ABS# (0-10)
--- NOTE | 2024-03-24 21:27 | ECG_ITS ---
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 Measurements Intervals [place] Rate: 78 P: 39 AR: 130 QRS: -39 QRSD: 96 T: 5 QT: 402 QTc: 459 Interpretive Statements SINUS RHYTHM LEFT AXIS DEVIATION [QRS AXIS < -30] LOW QRS VOLTAGE IN PRECORDIAL LEADS [QRS DEFLECTION < 1.0 mV IN CHEST LEADS] MINIMAL VOLTAGE CRITERIA FOR LVH, CONSIDER NORMAL VARIANT [MEETS CRITERIA IN ONE OF: R(aVL), S(V1), R(V5), R(V5/V6)+S(V1)] POSSIBLE ANTERIOR MYOCARDIAL INFARCTION , PROBABLY OLD [30 ms Q WAVE IN V3/V4, OR R < 0.2 mV IN V4] Compared to ECG 03/24/2024 17:37:27 Left-axis deviation now present Low QRS voltage now present Myocardial infarct finding now present Left anterior fascicular block no longer present Electronically Signed On 03-25-2024 16:28:45 CDT by Luis Gutiérrez M.D. [id number]
[2024-03-24] MEDS: sodium chloride 0.9% 1,000 ML 100 ML IV (22:13)
[2024-03-24] MEDS: enoxaparin 40 mg/0.4 mL Syringe SUBCUT (22:14)
[2024-03-24] MEDS: pantoprazole 40 mg SDV IVP (22:14)
[2024-03-24 23:09] LABS: Procalcitonin 2.71 ng/mL (0-0.5)
[2024-03-25] VITALS (9 sets, daily range): BP systolic 121–150; BP diastolic 58–74; PULSE 69–85; RESP 17–20; TEMP 36.8–38.2; O2SAT 94–97
--- NOTE | 2024-03-25 00:33 | PC.NURSE ---
Patient transferred to 262 via stretcher, capable of transferring from stretcher to bed with no assistance. Patient arrived to unit A&Ox4, on room air with family. Patient reported no pain upon arrival. Droplet precautions initiated. Admission assessment and questions answered from family and the patient. Will continue to monitor patient.
[2024-03-25] MEDS: acetaminophen 325 mg Tablet 650 MG PO ×3 (00:50→17:01)
[2024-03-25 00:52] LABS: Iron 10 ug/dL (37-145); Percent Saturation 4.3 % (20-50); Thyroid Stimulating Hormone 1.43 uIU/mL (0.27-4.20); Total Iron Binding Capacity 231 mcg/dl; Unsaturated Iron Binding 221 ug/dL (112-347); Vitamin B12 218 pg/mL (232-1245)
[2024-03-25 03:47] LABS: Glucose Point of Care 140 mg/dL (70-110)
[2024-03-25 06:31] LABS: Basophils % 0.2 %; Eosinophils % 0.2 %; Hematocrit 30.4 % (36-47); Lymphocytes # 1.6 10^3/uL (0.8-4.8); Lymphocytes % 15.3 %; Mean Corpuscular HGB Conc 30.9 g/dL (30-55); Mean Corpuscular Hemoglobin 26.6 pg (27-33); Mean Corpuscular Volume 85.9 fl (85-98); Monocytes % 9.7 %; Neutrophils % 73.9 %; Nucleated Red Blood Cells % 0 %; Platelet Count 294 10^3/cmm (157-399); Red Blood Count 3.54 10^6/uL (3.85-5.65); Red Cell Distribution Width 16.4 % (12.1-15.1); White Blood Count 10.69 10^3/uL (3.29-11.43)
[2024-03-25 06:43] LABS: Glucose Point of Care 143 mg/dL (70-110)
[2024-03-25 07:01] LABS: Alanine Aminotransferase 6 U/L (0-33); Albumin Level 3.4 g/dL (3.5-5.2); Alkaline Phosphatase 78 U/L (35-105); Anion Gap 14.9 (5-19); Aspartate Amino Transferase 8 U/L (0-32); Blood Urea Nitrogen 11 mg/dL (8-23); Calcium 9.1 mg/dL (8.5-10.5); Carbon Dioxide 26 mmol/L (22-29); Chloride 102 mmol/L (98-107); Globulin 3.9 g/dL (1.3-4.6); Glomerular Filtration Rate 72.7 mL/min (90-130); Glucose 134 mg/dL (65-115); Osmolality Calculated 289 mOsm/kg (285-295); Phosphorus 2.9 mg/dL (2.5-4.5); Potassium 3.9 mmol/L (3.5-5.1); Sodium 139 mmol/L (136-145); Total Bilirubin 0.4 mg/dL (0.15-1.2); Total Protein 7.3 g/dL (6.6-8.7)
[2024-03-25 07:19] LABS: Chol HDL Ratio 3.42 mg/dL (0.0-4.40); Cholesterol 106 mg/dL (0-200); Folate Level 10.1 ng/mL (4.8-37.3); HDL Cholesterol 31 mg/dL (60-100); LDL Cholesterol Calculated 34 mg/dL (50-129); Triglycerides 203 mg/dL (0-150)
[2024-03-25] MEDS: sodium chloride 0.9% 1,000 ML 100 ML IV (07:39)
[2024-03-25] MEDS: atorvastatin 40 mg Tablet PO (07:39)
[2024-03-25] MEDS: aspirin 81 mg Chew Tablet PO (07:39)
[2024-03-25 09:14] LABS: Estmated Average Glucose 137; Hemoglobin A1C 6.4 % (4.0-6.0)
[2024-03-25] MEDS: cyanocobalamin 1,000 mcg/mL SDV 1000 MCG IM (11:12)
[2024-03-25 11:31] LABS: Glucose Point of Care 148 mg/dL (70-110)
--- NOTE | 2024-03-25 14:45 | P.PN_ITS ---
Subjective 2 Subjective: No events overnight. Has remained afebrile since admission. Seen with family member at bedside. States feeling a lot better denies any nausea, vomiting, headache. Vitals/I&O/Wt Last Vital Signs Temp 98.3 F 03/25/24 12:00 Pulse 85 03/25/24 13:08 Resp 18 03/25/24 12:00 BP 135/74 03/25/24 12:00 Pulse Ox 97 03/25/24 12:00 O2 Del Method Room Air 03/25/24 12:00 03/24/24 03/25/24 03/25/24 22:59 06:59 14:59 Intake Total 170 / 170 360 / 530 1423.333 / 1423.333 Output Total 800 / 800 Balance 170 / 170 360 / 530 623.333 / 623.333 Weight last 48 hrs Weight 82.236 kg Weight 80.286 kg Weight 80.286 kg Physical Exam 2 Narrative: General: No acute distress, AO x3 HEENT: PERRLA, pupils bilaterally equal and reactive Chest: Normal vesicular breath sounds, no added sounds, equal good air entry bilaterally CVS: S1-S2 regular, no murmurs, no tachycardia, no gallops, no rubs Abdomen: Soft, nontender, no organomegaly, bowel sounds present Neuro: No focal deficits, no facial deformity, AO x3, power 5/5 in all limbs Skin: COMMON NORMALS: no rashes or lesions noted GENERAL SKIN EXAM: no rashes or lesions noted Data 03/25/24 06:08 03/25/24 06:08 Micro: Microbiology 03/24/24 16:12 Bacterial Antigens - Final Urine Kidney 03/24/24 16:25 Blood Culture - Preliminary Blood SPECIMEN COLLECTED 03/24/24 16:20 Blood Culture - Preliminary Blood SPECIMEN COLLECTED A&P Assessment and plan (1) Pyelonephritis: As seen on CT imaging done in the ER. Appreciate urinalysis. Follow-up blood culture, urine culture. So far negative. Empirically start patient IV ceftriaxone 1 g daily. Will de-escalate antibiotics as per culture results. (2) Sepsis: SIRS: Tachycardic, Febrile, Leukocytosis Source: UTI/pyelonephritis End organ damage: Acute kidney injury Lactic acid elevated. Normalizing after 2 hours. Patient did not receive full 30 mL/kg BW as patient has remained hemodynamically stable with lactate coming down with IV fluid at 75 cc/h. Stop IV fluids. Patient maintaining oral intake. Blood pressures have remained stable. Monitor blood pressures. Keep mean artery pressure 65 mmHg. Follow-up blood culture, urine culture. Appreciate procalcitonin, urine Legionella, bacterial antigen. De-escalate antibiotics as per culture results. (3) BOZENA (acute kidney injury): Baseline creatinine from 0.7. Resolved. Most likely in setting of dehydration and sepsis. Monitor BMP daily for now. Medical reconciliation done for nephrotoxic drugs. (4) Adenovirus infection: Supportive care. Monitor oxygen saturation. If needed will start on nebulization treatment and steroids. (5) Fall: Most likely in setting of generalized weakness from UTI. Check respiratory viral panel. Physical therapy evaluation. Denies any head injuries. (6) Type 2 diabetes mellitus: A1c 6.4. Carb consistent diet Insulin sliding scale at low-dose protocol. Patient denying insulin. Restart home dose of Januvia. Will not restart home dose of glipizide and metformin for now. Monitor blood sugars. (7) Lactic acid increased: (8) Weakness: Plan Vitamin B12 deficiency: Start on vitamin B12 shots IM daily. Will send home on oral vitamin B12 supplementation. Full code Lovenox for DVT prophylaxis Carb consistent diet Protonix for PUD prophylaxis Attestations 2 Medical Necessity Statement*: Requires further hospitalization for management of sepsis in setting of UTI with high concerns of pyelonephritis, adenovirus infection Diagnoses Pyelonephritis N12 Sepsis A41.9 BOZENA (acute kidney injury) N17.9 Adenovirus infection B34.0 Fall W19.XXXA Type 2 diabetes mellitus E11.9 Lactic acid increased E87.20 Weakness R53.1
[2024-03-25 16:38] LABS: Glucose Point of Care 208 mg/dL (70-110)
[2024-03-25] MEDS: sitagliptin 100 mg Tablet PO (17:01)
[2024-03-25] MEDS: ferrous sulfate EC 325 mg Tablet PO (17:01)
--- NOTE | 2024-03-25 18:38 | PC.NURSE ---
SHIFT SUMMARY Patient has been up to the chair most of the day. Ran a low grade fever once today. Good PO intake and output. Complained of a headache all day, but that is now gone with Tylenol and caffeine intake. Patient currently up in the chair.
[2024-03-25 20:42] LABS: Glucose Point of Care 310 mg/dL (70-110)
[2024-03-25] MEDS: enoxaparin 40 mg/0.4 mL Syringe SUBCUT (21:53)
[2024-03-25] MEDS: cefTRIAXone 1,000 MG in sodium chloride 0.9% (plus) 50 ML 100 MG IV (21:53)
[2024-03-25] MEDS: pantoprazole 40 mg SDV IVP (21:54)
[2024-03-26] VITALS: BP 133/66; PULSE 76; RESP 18; TEMP 37.4; O2SAT 95
[2024-03-26 04:00] VITALS: BP 147/73; PULSE 73; RESP 18; TEMP 37.5; O2SAT 95
[2024-03-26 05:41] VITALS: PULSE 69
[2024-03-26 06:43] LABS: Glucose Point of Care 178 mg/dL (70-110)
[2024-03-26 06:44] LABS: Basophils % 0.5 %; Eosinophils # 0.1 10^3/uL (0.0-0.8); Eosinophils % 0.8 %; Hematocrit 31.2 % (36-47); Lymphocytes # 1.7 10^3/uL (0.8-4.8); Lymphocytes % 22.6 %; Mean Corpuscular HGB Conc 30.4 g/dL (30-55); Mean Corpuscular Hemoglobin 26.7 pg (27-33); Mean Corpuscular Volume 87.6 fl (85-98); Mean Platelet Volume 9.2 fL (7.4-10.4); Monocytes # 0.7 10^3/uL (0.2-0.9); Monocytes % 9.1 %; Neutrophils # 5.03 10^3/uL (1.8-7.7); Neutrophils % 66.6 %; Nucleated Red Blood Cells % 0 %; Platelet Count 312 10^3/cmm (157-399); Red Blood Count 3.56 10^6/uL (3.85-5.65); Red Cell Distribution Width 16.3 % (12.1-15.1); White Blood Count 7.56 10^3/uL (3.29-11.43)
[2024-03-26 07:04] LABS: Alanine Aminotransferase 6 U/L (0-33); Albumin Level 3.4 g/dL (3.5-5.2); Alkaline Phosphatase 73 U/L (35-105); Anion Gap 13.6 (5-19); Aspartate Amino Transferase 11 U/L (0-32); Blood Urea Nitrogen 10 mg/dL (8-23); Calcium 8.2 mg/dL (8.5-10.5); Carbon Dioxide 26 mmol/L (22-29); Chloride 104 mmol/L (98-107); Creatinine Clr Calc Pharmacy 88.3284; Globulin 3.9 g/dL (1.3-4.6); Glomerular Filtration Rate 84.8 mL/min (90-130); Glucose 164 mg/dL (65-115); Osmolality Calculated 293 mOsm/kg (285-295); Potassium 3.6 mmol/L (3.5-5.1); Sodium 140 mmol/L (136-145); Total Bilirubin 0.2 mg/dL (0.15-1.2); Total Protein 7.3 g/dL (6.6-8.7)
[2024-03-26 07:52] VITALS: BP 137/71; PULSE 64; RESP 16; TEMP 36.8; O2SAT 97
[2024-03-26] MEDS: atorvastatin 40 mg Tablet PO (08:51)
[2024-03-26] MEDS: cyanocobalamin 1,000 mcg/mL SDV 1000 MCG IM (08:51)
[2024-03-26] MEDS: aspirin 81 mg Chew Tablet PO (08:51)
[2024-03-26] MEDS: ferrous sulfate EC 325 mg Tablet PO (08:51)
[2024-03-26] MEDS: sitagliptin 100 mg Tablet PO (08:52)
[2024-03-26 11:48] VITALS: BP 120/60; PULSE 66; RESP 15; O2SAT 97
--- NOTE | 2024-03-26 11:56 | PM.DCS ---
Discharge Providers Date of Admission: 03/24/24 18:30 Date of Discharge: March 26, 2024 Attending Provider at Admission: Jean Paul Cox MD Attending Provider at Discharge: Jean Paul Cox MD Primary Care Provider: Jocelyn Dawkins MD Diagnoses at Discharge Discharge Diagnosis (1) Pyelonephritis: Status: Acute (2) Sepsis: Status: Acute (3) BOZENA (acute kidney injury): Status: Acute (4) Adenovirus infection: Status: Acute (5) Fall: Status: Acute (6) Type 2 diabetes mellitus: Status: Acute (7) Lactic acid increased: Status: Acute (8) Weakness: Status: Acute Reason for Visit Reason for Visit: Weakness, Back pain, Fever Hospital Course Hospital Course Carolin Kelly is a 63 year old female with past medical history of type 2 diabetes mellitus presented to the ER because of generalized weakness, tiredness along with recurrent episodes of falls happening over the last 1 week along with back pain and mild dysuria. Patient states generally she is pretty independent able to take care of her ADLs but for last 1 week has been gradually getting weaker with few episodes of fall. Denies any head injuries or weakness in any of the arms. Complaining of lower back pain. Denies any nausea, vomiting, headache, dizziness, diarrhea, dysuria, poor appetite no recent sick contacts. Patient was admitted to the hospital further evaluation and management of sepsis. On admission there was a concern for UTI and pyelonephritis. She was started on broad-spectrum antibiotics. Respiratory viral panel was also positive for adenovirus. She continued to respond well to the treatment and has been afebrile for more than 12 hours. She has remained hemodynamically stable. Blood cultures remain negative and urine culture is positive for gram-negative rods. She was seen by physical therapy during hospitalization and has been cleared for discharge. She was found to have an A1c of 6.4. She did not receive any insulin during hospitalization and her blood sugar remained stable. Patient is on multiple antidiabetic medication as an outpatient. Given concerns for hypoglycemia as an outpatient her glipizide for now has been stopped. She is asked to check her blood sugars daily and maintain a fasting blood sugar diary and follow-up with a primary care provider within next 10 days for further adjustment of antidiabetic medications. She has been discharged in hemodynamically stable condition on oral Levaquin for 7 more days. She was advised in detail to maintain her hydration with oral fluids off around 2 L a day. Physical Exam Narrative: General: No acute distress, AO x3 HEENT: PERRLA, pupils bilaterally equal and reactive Chest: Normal vesicular breath sounds, no added sounds, equal good air entry bilaterally CVS: S1-S2 regular, no murmurs, no tachycardia, no gallops, no rubs Abdomen: Soft, nontender, no organomegaly, bowel sounds present Neuro: No focal deficits, no facial deformity, AO x3, power 5/5 in all limbs Skin: COMMON NORMALS: no rashes or lesions noted GENERAL SKIN EXAM: no rashes or lesions noted Discharge Data Studies Completed and Pending Completed Studies During Hospitalization Category Date Time Status CT abdomen pelvis wo con [id number] Stat Cat Scan 03/24/24 15:58 Completed XR chest 1V portable [id number] Stat Exams 03/24/24 15:21 Completed Pending at discharge Category Date Time Status Blood Culture Stat Lab 03/24/24 16:25 Results Urine Culture Stat Lab 03/24/24 16:12 Results Radiology Impressions Chest X-Ray 03/24/24 15:21 IMPRESSION: No acute pathology or significant change given incomplete pulmonary expansion. Abdomen/Pelvis CT 03/24/24 15:58 IMPRESSION: 1. Asymmetric infiltration of fat in the left perinephric and periureteral regions with mural thickening of the left renal pelvis. Findings suggesting possible upper urinary tract infection although component of residual changes from prior insult cannot be excluded. 2. Cholelithiasis. 3. Hepatic steatosis. 4. Large fat containing umbilical hernia. 5. Large amount of colonic stool. Microbiology 03/24/24 16:12 Urine,Clean Catch Urine Culture - Preliminary Gram Negative Rods 03/24/24 16:25 Blood Blood Culture - Preliminary NEGATIVE TO DATE 03/24/24 16:20 Blood Blood Culture - Preliminary NEGATIVE TO DATE 03/24/24 16:12 Urine Kidney Bacterial Antigens - Final Laboratory Results WBC 7.56 10^3/uL (3.29-11.43) 03/26/24 06:07 RBC 3.56 10^6/uL (3.85-5.65) L 03/26/24 06:07 Hgb 9.50 g/dL (11.27-16.99) L 03/26/24 06:07 Hct 31.2 % (36-47) L 03/26/24 06:07 MCV 87.6 fl (85-98) 03/26/24 06:07 MCH 26.7 pg (27-33) L 03/26/24 06:07 MCHC 30.4 g/dL (30-55) 03/26/24 06:07 RDW 16.3 % (12.1-15.1) H 03/26/24 06:07 Plt Count 312 10^3/cmm (157-399) 03/26/24 06:07 MPV 9.2 fL (7.4-10.4) 03/26/24 06:07 Neut % (Auto) 66.6 % 03/26/24 06:07 Lymph % (Auto) 22.6 % 03/26/24 06:07 [place] % (Auto) 9.1 % 03/26/24 06:07 Eos % (Auto) 0.8 % 03/26/24 06:07 Baso % (Auto) 0.5 % 03/26/24 06:07 Neut # (Auto) 5.03 10^3/uL (1.8-7.7) 03/26/24 06:07 Lymph # (Auto) 1.7 10^3/uL (0.8-4.8) 03/26/24 06:07 [place] # (Auto) 0.7 10^3/uL (0.2-0.9) 03/26/24 06:07 Eos # (Auto) 0.1 10^3/uL (0.0-0.8) 03/26/24 06:07 Baso # (Auto) 0.0 10^3/uL (0.0-0.1) 03/26/24 06:07 Nucleated RBC % (auto) 0 % 03/26/24 06:07 Nucleated RBCs # 0.0 /100WBC 03/26/24 06:07 Sodium 140 mmol/L (136-145) 03/26/24 06:07 Potassium 3.6 mmol/L (3.5-5.1) 03/26/24 06:07 Chloride 104 mmol/L (98-107) 03/26/24 06:07 Carbon Dioxide 26 mmol/L (22-29) 03/26/24 06:07 Anion Gap 13.6 (5-19) 03/26/24 06:07 BUN 10 mg/dL (8-23) 03/26/24 06:07 Creatinine 0.7 mg/dL (0.5-0.9) 03/26/24 06:07 GFR Calculation 84.8 mL/min (90-130) L 03/26/24 06:07 Glucose 164 mg/dL (65-115) H 03/26/24 06:07 POC Glucose 178 mg/dL (70-110) H 03/26/24 06:37 Estimat Average Glucose 137 03/25/24 06:08 Hemoglobin A1c 6.4 % (4.0-6.0) H 03/25/24 06:08 Calculated Osmolality 293 mOsm/kg (285-295) 03/26/24 06:07 Lactic Acid 2.5 mmol/L (0.5-2.2) H 03/24/24 15:10 Lactic Acid (Sepsis) 0.9 mmol/L (0.5-2.2) 03/24/24 18:01 Calcium 8.2 mg/dL (8.5-10.5) L 03/26/24 06:07 Phosphorus 2.9 mg/dL (2.5-4.5) 03/25/24 06:08 Magnesium 2.0 mg/dL (1.7-2.3) 03/25/24 06:08 Iron 10 ug/dL (37-145) L 03/24/24 18:01 TIBC 231 mcg/dl 03/24/24 18:01 % Saturation 4.3 % (20-50) L 03/24/24 18:01 Unsat Iron Binding 221 ug/dL (112-347) 03/24/24 18:01 Total Bilirubin 0.2 mg/dL (0.15-1.2) 03/26/24 06:07 AST 11 U/L (0-32) 03/26/24 06:07 ALT 6 U/L (0-33) 03/26/24 06:07 Alkaline Phosphatase 73 U/L (35-105) 03/26/24 06:07 Troponin T Baseline 12 ng/L (0-10) H 03/24/24 15:10 Troponin T 120 Minute 9.86 ng/L (0-10) 03/24/24 18:01 Delta Troponin T -2.14 ABS# (0-10) L 03/24/24 18:01 Troponin T Hi Sens 6Hr 10.50 ng/L (0-10) H 03/24/24 21:24 Troponin T Hi Sens 6Hr Delta -1.50 ng/L (0-12) L 03/24/24 21:24 Total Protein 7.3 g/dL (6.6-8.7) 03/26/24 06:07 Albumin 3.4 g/dL (3.5-5.2) L 03/26/24 06:07 Globulin 3.9 g/dL (1.3-4.6) 03/26/24 06:07 Triglycerides 203 mg/dL (0-150) H 03/25/24 06:08 Cholesterol 106 mg/dL (0-200) 03/25/24 06:08 LDL Cholesterol, Calc 34 mg/dL (50-129) L 03/25/24 06:08 HDL Cholesterol 31 mg/dL (60-100) L 03/25/24 06:08 LDL/HDL Ratio 1.10 RATIO (0.00-3.22) 03/25/24 06:08 Cholesterol/HDL Ratio 3.42 mg/dL (0.0-4.40) 03/25/24 06:08 Lipase 19 U/L (13-60) 03/24/24 15:10 Vitamin B12 218 pg/mL (232-1245) L 03/24/24 18:01 Folate 10.1 ng/mL (4.8-37.3) 03/25/24 06:08 Procalcitonin 2.71 ng/mL (0-0.5) H 03/24/24 21:24 TSH 1.43 uIU/mL (0.27-4.20) 03/24/24 18:01 Urine Color Yellow (Yellow) 03/24/24 16:12 Urine Appearance Hazy (CLEAR) A 03/24/24 16:12 Urine pH 5 (5-7) 03/24/24 16:12 Ur Specific [place] 1.015 (1.005-1.030) 03/24/24 16:12 Urine Protein Trace (Negative) 03/24/24 16:12 Urine Glucose (UA) 4+ (Normal) H 03/24/24 16:12 Urine Ketones 1+ (Negative) H 03/24/24 16:12 Urine Blood 3+ (Negative) H 03/24/24 16:12 Urine Nitrate Positive (Negative) H 03/24/24 16:12 Urine Bilirubin Neg (Negative) 03/24/24 16:12 Urine Urobilinogen Norm mg/dL (Negative) 03/24/24 16:12 Ur Leukocyte Esterase 1+ (Negative) H 03/24/24 16:12 Urine RBC 0-4 /hpf (0-2) H 03/24/24 16:12 Urine WBC 40-55 /hpf (0-5) H 03/24/24 16:12 Ur Squamous Epith Cells 5-10 /hpf (0-5) H 03/24/24 16:12 Amorphous Sediment Not Reportable 03/24/24 16:12 Urine Bacteria 3+ /hpf (NONE) H 03/24/24 16:12 Urine Mucus Trace /hpf 03/24/24 16:12 Adenovirus (PCR) Detected (NOT DETECT) A 03/24/24 15:55 C. pneumoniae DNA (PCR) Not detected (NOT DETECT) 03/24/24 15:55 Coronavirus 229E (PCR) Not detected (NOT DETECT) 03/24/24 15:55 Human Metapneumovir PCR Not detected (NOT DETECT) 03/24/24 15:55 Influenza A (H1) PCR Not detected (NOT DETECT) 03/24/24 15:55 Influ A (H1/09) PCR Not detected (NOT DETECT) 03/24/24 15:55 Influenza A (H3) PCR Not detected (NOT DETECT) 03/24/24 15:55 Influenza Type A (PCR) Not detected (NOT DETECT) 03/24/24 15:55 Influenza Type B (PCR) Not detected (NOT DETECT) 03/24/24 15:55 M. pneumoniae (PCR) Not detected (NOT DETECT) 03/24/24 15:55 Parainfluenza 1 (PCR) Not detected (NOT DETECT) 03/24/24 15:55 Parainfluenza 2 (PCR) Not detected (NOT DETECT) 03/24/24 15:55 Parainfluenza 3 (PCR) Not detected (NOT DETECT) 03/24/24 15:55 Parainfluenza 4 (PCR) Not detected (NOT DETECT) 03/24/24 15:55 RSV Type A (PCR) Not detected (NOT DETECT) 03/24/24 15:55 RSV Type B (PCR) Not detected (NOT DETECT) 03/24/24 15:55 Entero/Rhino (PCR) Not detected (NOT DETECT) 03/24/24 15:55 SARS-CoV-2 (PCR) Not detected (NOT DETECT) 03/24/24 15:55 Vitals Last Vital Signs Temp 98.3 F 03/26/24 07:52 Pulse 66 03/26/24 11:48 Resp 15 03/26/24 11:48 BP 120/60 03/26/24 11:48 Pulse Ox 97 03/26/24 11:48 O2 Del Method Room Air 03/26/24 11:48 Discharge Plan Discharge Patient Disposition: Home Condition: Stable Prescriptions: New levofloxacin 500 mg tablet 500 mg PO Q24H 7 Days Qty: 7 0RF cyanocobalamin (vitamin B-12) 1,000 mcg capsule 1,000 mcg PO DAILY Qty: 60 0RF Continued aspirin 81 mg tablet,chewable 81 mg PO DAILY atorvastatin 40 mg tablet 40 mg PO DAILY Januvia 100 mg tablet 100 mg PO DAILY Qty: 90 3RF Invokana 300 mg tablet 300 mg PO DAILY Qty: 90 3RF metformin 1,000 mg tablet 1,000 mg PO BID iron 325 mg (65 mg iron) Tablet 325 mg PO BID escitalopram oxalate 20 mg tablet 20 mg PO DAILY melatonin 10 mg Tablet 10 mg PO BEDTIME Discontinued glipizide 10 mg tablet 10 mg PO DAILY Discharge Orders: Discharge Order (Routine); Ordered 03/26/24 Ordered By: Jean Paul Cox Referrals: Jocelyn Dawkins MD [Primary Care Provider] - 7-10 days Discharge Diet: Regular, Cardiac and Diabetic Discharge Activity: Resume usual activity and Increase activity as tolerated Patient Instructions: Opioid Safety Activity Restrictions/Additional Instructions: Continue taking Levaquin for 7 more days. Maintain your oral hydration with 2 L of liquids daily. Please follow-up with a primary care provider within next 1 week to 10 days. Your medication including glipizide has been stopped. Target fasting blood sugar should be less than 120 and more than 100. Check your fasting blood sugar daily and maintain a blood sugar diary. Follow up with your PCP in 10 days with a blood sugar diary for further adjustment of anti-diabetic medications. Discharge Attestations Time Spent in Discharge Care*: greater than 30 min Specific Discharge Activities: educating patient, educating and/or supporting family/caregiver, discussing with pcp/other providers, discussing with case making machine operator/social workers/dc planners, documenting/other paperwork and evaluating patient/reviewing data Status at Discharge: Cognitive status at discharge: cognitively intact, Behavioral status at discharge: cooperative, Functional status at discharge: independent ambulation, Overall status at discharge: patient is back to baseline Quality Metrics Clinical Quality Measures [ No reported AMI, CVA or VTE this stay] Coding Level of Care Code 19813 Total time (in minutes) for Discharge: 60 Diagnoses Pyelonephritis N12 Sepsis A41.9 BOZENA (acute kidney injury) N17.9 Adenovirus infection B34.0 Fall W19.XXXA Type 2 diabetes mellitus E11.9 Lactic acid increased E87.20 Weakness R53.1
[2024-03-26 12:14] VITALS: BP 120/60; PULSE 66; RESP 15; O2SAT 97
[2024-03-26 16:40] LABS: Glucose Point of Care 177 mg/dL (70-110)
== END 2024-03-26 14:45 | disposition home or self-care (01) | DRG 690 ==
LOC: ER 17:43 → MEDSURG 18:31
PROVIDERS: Admitting Provider Student in an Organized Health Care Education/Training Program; Emergency Provider Family Medicine; PCP Family Medicine; Visit Provider Student in an Organized Health Care Education/Training Program
DX: N12 Tubulo-interstitial nephritis, not specified as acute or chronic (principal); N17.9 Acute kidney failure, unspecified; B97.0 Adenovirus as the cause of diseases classified elsewhere; W19.XXXA Unspecified fall, initial encounter; E11.9 Type 2 diabetes mellitus without complications; Z79.84 Long term (current) use of oral hypoglycemic drugs; E53.8 Deficiency of other specified B group vitamins; Z79.82 Long term (current) use of aspirin
CPT/HCPCS: 36415; 36416; 71045; 74176; 80053; 80061; 81001; 82607; 82746; 82962; 83036; 83540; 83550; 83605; 83690; 83735; 84100; 84145; 84443; 84484; 85025; 86403; 87040; 87077; 87086; 87186; 87486; 87581; 87633; 93005; 94664; 96365; 96372; 97161; 99285; C9113; J0696; J1650; J3420; J7030

== ENCOUNTER 2024-05-27 08:00 | Outpatient (CLI) | payer MEDICAID, SELFPAY ==
--- NOTE | 2024-05-27 07:57 | MM_ITS ---
WS: [id number] BILATERAL SCREENING DIGITAL TOMOSYNTHESIS MAMMOGRAM WITH CAD HISTORY: SCREENING COMPARISON: 05/02/2023 and 04/25/2022 and 09/26/2010 Bilateral CC and MLO views with tomosynthesis and synthetic mammography submitted. Computer aided det ection analyzed. Breast composition: There are scattered areas of fibroglandular density. No suspicious masses, microc alcifications or architectural distortion. Benign calcifications in each breast. MM/[place] [id number] IMPRESSION: BI-RADS: 2-Benign FOLLOW UP: 1 Year Follow-up
== END 2024-05-27 08:01 | disposition home or self-care (01) ==
PROVIDERS: PCP Family Medicine; Visit Provider Family Medicine
DX: Z12.31 Encounter for screening mammogram for malignant neoplasm of breast (principal); R92.323 Mammographic fibroglandular density, bilateral breasts; R92.1 Mammographic calcification found on diagnostic imaging of breast
CPT/HCPCS: 77063; 77067

== ENCOUNTER 2025-04-08 10:37 | Outpatient (CLI) | payer MEDICAID, SELFPAY ==
--- NOTE | 2025-04-08 10:39 | FL_ITS ---
WS: [id number] Modified barium swallow, 04/08/2025 Clinical Data: Oropharyngeal dysphagia Comparison: None. Fluoroscopy time: 1min [id number] # of spot films: Multiple Findings: The patient showed good oral handling of liquids and food. There is no significant pharyngeal residue. There was no aspiration but mild penetration with thin liquids. The barium tablet passed normally from the oral cavity into the hypopharynx and in the esophagus and finally the stomach. FL/FL barium swallow modifd [id number] Impression: 1. No aspiration. 2. Mild penetration with thin liquids.
== END 2025-04-08 10:38 | disposition home or self-care (01) ==
PROVIDERS: PCP Family Medicine; Visit Provider Electrodiagnostic Medicine
DX: R13.12 Dysphagia, oropharyngeal phase (principal); R93.89 Abnormal findings on diagnostic imaging of other specified body structures
CPT/HCPCS: 74230; 92611

== ENCOUNTER 2025-04-09 15:16 | Inpatient (IN) | payer MEDICAID, SELFPAY ==
[2025-04-09] VITALS (9 sets, daily range): BP systolic 94–155; BP diastolic 55–98; PULSE 91–107; RESP 16–18; TEMP 38.6; O2SAT 94–99; BMI 30.5; BMI 31.7
--- NOTE | 2025-04-09 15:51 | W.ED.NAVMDI ---
HPI - Nausea/Vomiting/Diarrhea General: Chief complaint: Nausea/Vomiting/Diarrhea Stated complaint: Diarhea / Dizzy Time Seen by Provider: 04/09/25 15:51 History of Present Illness: 64-year-old female presents emergency complaining of diarrhea for the last 24 hours. Denies any medic easier melena. No dysuria urgency or frequency no chest or abdominal pain no other symptoms. She has not recently been on any antibiotics. No vomiting she does have a moderate fever temp of 1015 on presentation. Associated nausea: No Associated symtoms: Reports fatigue and malaise; Denies chest pain, dysuria or nausea Related Data Home Medications ?Medication ?Instructions ?Recorded ?Confirmed aspirin 81 mg chewable tablet 81 mg PO DAILY 10/16/21 03/25/24 atorvastatin 40 mg tablet 40 mg PO DAILY 10/16/21 03/25/24 metformin 1,000 mg tablet 1,000 mg PO BID 05/18/23 03/25/24 escitalopram oxalate 20 mg tablet 20 mg PO DAILY 03/25/24 03/25/24 ferrous sulfate 325 mg (65 mg 325 mg PO BID 03/25/24 03/25/24 iron) tablet (iron) melatonin 10 mg tablet 10 mg PO BEDTIME 03/25/24 03/25/24 Previous Rx's ?Medication ?Instructions ?Recorded canagliflozin 300 mg tablet 300 mg PO DAILY #90 tabs 10/19/21 (Invokana) sitagliptin phosphate 100 mg 100 mg PO DAILY #90 tabs 10/19/21 tablet (Januvia) cyanocobalamin (vitamin B-12) 1,000 mcg PO DAILY #60 caps 03/26/24 1,000 mcg capsule Allergies Allergy/AdvReac Type Severity Reaction Status Date / Time Sulfa (Sulfonamide Allergy Severe rash Verified 05/18/23 12:06 Antibiotics) Review of Systems Const: Reports: fatigue and malaise; Denies: fever(s) or chills Card: Denies: chest pain Resp: Denies: dyspnea GI: Reports: diarrhea; Denies: abdominal pain, nausea or vomiting : Denies: dysuria, urinary frequency or urinary urgency Musc: Denies: neck pain or back pain Skin/Breast: Denies: rash PFSH ED PFSH: Medical History Type 2 diabetes mellitus Family History Mother Cancer Social History Smoking and tobacco/nicotine status: former use of tobacco/nicotine Adopted: No Marital status: Number of children: 5 service: No Physical Exam Const: GENERAL APPEARANCE: cooperative ORIENTATION/CONSCIOUSNESS: Yes awake, Yes oriented to person, Yes oriented to place and Yes oriented to time HENMT: COMMON NORMALS: normocephalic, atraumatic and hearing grossly normal bilaterally HEAD & SCALP: normocephalic and atraumatic Resp: COMMON NORMALS: normal respiratory effort, No retractions, No use of accessory muscles and clear to auscultation bilaterally AUSCULTATION: clear to auscultation bilaterally Cardio: COMMON NORMALS: regular rate, regular rhythm and No murmurs present (Cardio) RATE: regular rate RHYTHM: regular rhythm GI: COMMON NORMALS: Soft to palpation and No hepatosplenomegaly present AUSCULTATION: Yes normoactive bowel sounds PALPATION: Yes Soft to palpation, No Tenderness to palpation present (GI), No Guarding due to palpation present (GI) and Yes No hepatosplenomegaly present Extremity: COMMON NORMALS: normal to inspection, capillary refill normal, no clubbing, cyanosis or edema, no calf tenderness and no pedal edema Neuro: SENSORIUM/ORIENTATION: Yes oriented to person, Yes oriented to place and Yes oriented to time Skin: COMMON NORMALS: no rashes or lesions noted GENERAL SKIN EXAM: no rashes or lesions noted Course Vital Signs: Vital signs: Vital Signs Temperature 101.5 F H 04/09/25 15:20 Pulse Rate 107 H 04/09/25 17:38 Respiratory Rate 16 04/09/25 17:38 Blood Pressure 94/76 04/09/25 17:38 Pulse Oximetry 94 04/09/25 17:38 Oxygen Delivery Me thod Room Air 04/09/25 17:38 MDM - Nausea/Vomiting/Diarrhea Medical Decision Making Patient is tachycardic mildly hypotensive after IV fluids has been having a temp of 201.5 along with nausea and vomiting. Will place on observation. Lactic is still pending. Previous urine culture sensitive to ceftriaxone initiated on ceftriaxone. Discussed with Dr. Kenny orders written Medical Records I reviewed the patient's medical records. Lab Data I reviewed the patient's lab results. 04/09/25 16:00 04/09/25 16:00 Radiology Impressions Chest X-Ray 04/09/25 16:02 IMPRESSION: No radiographic evidence for acute cardiopulmonary disease. Laboratory Results WBC 6.46 10^3/uL (3.29-11.43) 04/09/25 16:00 RBC 4.08 10^6/uL (3.85-5.65) 04/09/25 16:00 Hgb 11.30 g/dL (11.27-16.99) 04/09/25 16:00 Hct 35.9 % (36-47) L 04/09/25 16:00 MCV 88.0 fl (85-98) 04/09/25 16:00 MCH 27.7 pg (27-33) 04/09/25 16:00 MCHC 31.5 g/dL (30-55) 04/09/25 16:00 RDW 14.3 % (12.1-15.1) 04/09/25 16:00 Plt Count 168 10^3/cmm (157-399) 04/09/25 16:00 MPV 9.6 fL (7.4-10.4) 04/09/25 16:00 Neut % (Auto) 74.4 % 04/09/25 16:00 Lymph % (Auto) 11.5 % 04/09/25 16:00 [place] % (Auto) 13.5 % 04/09/25 16:00 Eos % (Auto) 0.0 % 04/09/25 16:00 Baso % (Auto) 0.3 % 04/09/25 16:00 Neut # (Auto) 4.81 10^3/uL (1.8-7.7) 04/09/25 16:00 Lymph # (Auto) 0.7 10^3/uL (0.8-4.8) L 04/09/25 16:00 [place] # (Auto) 0.9 10^3/uL (0.2-0.9) 04/09/25 16:00 Eos # (Auto) 0.0 10^3/uL (0.0-0.8) 04/09/25 16:00 Baso # (Auto) 0.0 10^3/uL (0.0-0.1) 04/09/25 16:00 Nucleated RBC % (auto) 0 % 04/09/25 16:00 Nucleated RBCs # 0.0 /100WBC 04/09/25 16:00 Sodium 135 mmol/L (136-145) L 04/09/25 16:00 Potassium 3.7 mmol/L (3.5-5.1) 04/09/25 16:00 Chloride 96 mmol/L (98-107) L 04/09/25 16:00 Carbon Dioxide 24 mmol/L (22-29) 04/09/25 16:00 Anion Gap 18.7 (5-19) 04/09/25 16:00 BUN 16 mg/dL (8-23) 04/09/25 16:00 Creatinine 1.0 mg/dL (0.5-0.9) H 04/09/25 16:00 GFR Calculation 56.0 mL/min (90-130) L 04/09/25 16:00 Glucose 181 mg/dL (65-115) H 04/09/25 16:00 Calculated Osmolality 286 mOsm/kg (285-295) 04/09/25 16:00 Calcium 8.9 mg/dL (8.5-10.5) 04/09/25 16:00 Magnesium 1.4 mg/dL (1.7-2.3) L 04/09/25 16:00 Total Bilirubin 0.6 mg/dL (0.15-1.2) 04/09/25 16:00 AST 13 U/L (0-32) 04/09/25 16:00 ALT 8 U/L (0-33) 04/09/25 16:00 Alkaline Phosphatase 64 U/L (35-105) 04/09/25 16:00 Total Protein 7.3 g/dL (6.6-8.7) 04/09/25 16:00 Albumin 3.9 g/dL (3.5-5.2) 04/09/25 16:00 Globulin 3.4 g/dL (1.3-4.6) 04/09/25 16:00 Lipase 63 U/L (13-60) H 04/09/25 16:00 Urine Color Yellow (Yellow) 04/09/25 16:20 Urine Appearance Clear (CLEAR) 04/09/25 16:20 Urine pH 5.5 (5-7) 04/09/25 16:20 Ur Specific [place] 1.023 (1.005-1.030) 04/09/25 16:20 Urine Protein Negative (Negative) 04/09/25 16:20 Urine Glucose (UA) 2+ (Normal) H 04/09/25 16:20 Urine Ketones Negative (Negative) 04/09/25 16:20 Urine Blood 1+ (Negative) A 04/09/25 16:20 Urine Nitrate Positive (Negative) A 04/09/25 16:20 Urine Bilirubin Negative (Negative) 04/09/25 16:20 Urine Urobilinogen 0.2 mg/dL (Negative) 04/09/25 16:20 Ur Leukocyte Esterase Trace (Negative) A 04/09/25 16:20 Urine RBC 6-10 /hpf (0-2) 04/09/25 16:20 Urine WBC 21-50 /hpf (0-5) H 04/09/25 16:20 Ur Squamous Epith Cells 0-5 /hpf (0-5) 04/09/25 16:20 Amorphous Sediment Not Reportable 04/09/25 16:20 Urine Bacteria 1+ /hpf (NONE) H 04/09/25 16:20 Hyaline Casts 0-4 /lpf H 04/09/25 16:20 Urine Yeast 1+ /hpf H 04/09/25 16:20 Influenza A (PCR) Negative (Negative) 04/09/25 16:23 Influenza Type B (PCR) Negative (Negative) 04/09/25 16:23 RSV (PCR) Negative (Negative) 04/09/25 16:23 SARS-CoV-2 (PCR) Negative (Negative) 04/09/25 16:23 All radiology interpretation(s) finalized by discharge Discharge Plan Discharge Patient Disposition: Admitted As Inpatient Clinical Impression: Pyelonephritis, Type 2 diabetes mellitus Condition: Stable Coding Level of Care Code ED Jet Worker for Maylin Paul
--- NOTE | 2025-04-09 16:02 | XRR_ITS ---
PROCEDURE INFORMATION: Exam: XR Chest Exam date and time: 04/09/2025 4:05 PM Age: 64 years old Clinical indication: Cough and dyspnea; Additional info: Dyspnea/cough TECHNIQUE: Imaging protocol: Radiologic exam of the chest. Views: 1 view. COMPARISON: CR XR chest 1V portable [id number] 03/24/2024 3:41 PM FINDINGS: Lungs: Clear. No consolidation. Pleural spaces: No significant pleural effusion. No pneumothorax. Heart/Mediastinum: Within normal limits. Bones/joints: Intact. Other findings: None. XR/XR chest 1V portable [id number] IMPRESSION: No radiographic evidence for acute cardiopulmonary disease.
[2025-04-09 16:20] LABS: Basophils % 0.3 %; Hematocrit 35.9 % (36-47); Lymphocytes # 0.7 10^3/uL (0.8-4.8); Lymphocytes % 11.5 %; Mean Corpuscular HGB Conc 31.5 g/dL (30-55); Mean Corpuscular Hemoglobin 27.7 pg (27-33); Mean Platelet Volume 9.6 fL (7.4-10.4); Monocytes # 0.9 10^3/uL (0.2-0.9); Monocytes % 13.5 %; Neutrophils # 4.81 10^3/uL (1.8-7.7); Neutrophils % 74.4 %; Nucleated Red Blood Cells % 0 %; Platelet Count 168 10^3/cmm (157-399); Red Blood Count 4.08 10^6/uL (3.85-5.65); Red Cell Distribution Width 14.3 % (12.1-15.1); White Blood Count 6.46 10^3/uL (3.29-11.43)
[2025-04-09] MEDS: sodium chloride 0.9% 1,000 ML 999 ML IV ×2 (16:26→18:37)
[2025-04-09 16:35] LABS: Alanine Aminotransferase 8 U/L (0-33); Albumin Level 3.9 g/dL (3.5-5.2); Alkaline Phosphatase 64 U/L (35-105); Anion Gap 18.7 (5-19); Aspartate Amino Transferase 13 U/L (0-32); Blood Urea Nitrogen 16 mg/dL (8-23); Calcium 8.9 mg/dL (8.5-10.5); Carbon Dioxide 24 mmol/L (22-29); Chloride 96 mmol/L (98-107); Creatinine Clr Calc Pharmacy 59.1919; Globulin 3.4 g/dL (1.3-4.6); Glucose 181 mg/dL (65-115); Lipase 63 U/L (13-60); Magnesium 1.4 mg/dL (1.7-2.3); Osmolality Calculated 286 mOsm/kg (285-295); Potassium 3.7 mmol/L (3.5-5.1); Sodium 135 mmol/L (136-145); Total Bilirubin 0.6 mg/dL (0.15-1.2); Total Protein 7.3 g/dL (6.6-8.7)
[2025-04-09 16:53] LABS: Bilirubin Urine Negative (Negative); Blood Urine 1+ (Negative); Glucose Urine UA 2+ (Normal); Ketones Urine Negative (Negative); Leukocyte Esterase Urine Trace (Negative); Nitrate Urine Positive (Negative); Protein Urine Negative (Negative); Specific Gravity, Urine 1.023 (1.005-1.030); Urine Appearance Clear (CLEAR); Urine Color Yellow (Yellow); Urobilinogen Urine 0.2 mg/dL (Negative); pH Urine 5.5 (5-7)
[2025-04-09 16:59] LABS: Add Urine Microscopic? YES; Bacteria Urine 1+ /hpf; Hyaline Casts Urine 0-4 /lpf; Squamous Epithelial Cell Urine 0-5 /hpf (0-5); WBC Urine 21-50 /hpf (0-5)
--- NOTE | 2025-04-09 17:13 | CTR_ITS ---
PROCEDURE INFORMATION: Exam: CT Abdomen And Pelvis Without Contrast Exam date and time: 04/09/2025 5:59 PM Age: 64 years old Clinical indication: Abnormal findings; Abnormal lab test; Elevated lipase; C/O diarrhea x 2 days. Elevated lipase. ; Additional info: Abdominal pain TECHNIQUE: Imaging protocol: Computed tomography of the abdomen and pelvis without contrast. Radiation optimization: All CT scans at this facility use at least one of these dose optimization techniques: automated exposure control; mA and/or kV adjustment per patient size (includes targeted exams where dose is matched to clinical indication); or iterative reconstruction. COMPARISON: CT abdomen pelvis wo con [id number] 03/24/2024 4:13 PM RADIATION DOSE METRICS: Total DLP (mGy-cm): 728.35 FINDINGS: Lungs: Visualized lung bases are clear. Liver: A small 12 mm simple cyst is again seen in the left hepatic lobe. Few other subcentimeter hypodense foci are seen in the liver, too small to characterize accurately by CT, but not significantly changed. Gallbladder and biliary ducts: There are small radiopaque stones within the gallbladder. No significant biliary dilatation. Pancreas: Unremarkable. Spleen: There are small accessory splenules adjacent to the splenic hilum. Adrenal glands: There is stable mild thickening of the adrenal glands bilaterally. No focal nodule seen. Kidneys and ureters: No renal or ureteral calculi are detected. No significant hydronephrosis. Stomach and bowel: Despite incomplete distension of the colon, there appears to be abnormal thickening of the wall of the proximal ascending colon from the level of the ileocecal valve. There is prominence of small bowel loops throughout the abdomen and pelvis without significant bowel dilatation or evidence for obstruction. Appendix: The appendix is normal in caliber. No evidence of acute appendicitis. Intraperitoneal space: Unremarkable. No free air. No significant fluid collection. Vasculature: The abdominal aorta is normal in caliber with mild atherosclerotic calcification. Lymph nodes: Unremarkable. No enlarged lymph nodes. Urinary bladder: Unremarkable as visualized. Reproductive: Unremarkable as visualized. Bones/joints: There are mild degenerative changes involving the visualized lower lumbar spine with mild grade 1 spondylolisthesis at L4-L5, stable in appearance. Soft tissues: There is a fat containing periumbilical hernia, stable in appearance. CT/CT abdomen pelvis wo con [id number] IMPRESSION: 1. Apparent abnormal thickening of the wall of the ascending colon despite incomplete distension on this exam. Findings are suspicious for colitis. Please correlate clinically. 2. Prominent small bowel loops throughout the abdomen and pelvis without significant bowel dilatation or evidence for obstruction. 3. Cholelithiasis. 4. Other chronic findings described above.
[2025-04-09 17:17] LABS: Add Urine Culture? Yes; UA Slide Review UA Slide Review Perf
[2025-04-09 17:38] LABS: Influenza A NEGATIVE (Negative); Influenza B NEGATIVE (Negative); Respiratory Syncytial Virus Ce NEGATIVE (Negative); SARS-CoV-2 PCR NEGATIVE (Negative)
[2025-04-09 18:36] LABS: Lactic Sepsis W/Reflex 1.8 mmol/L (0.5-2.2)
[2025-04-09] MEDS: cefTRIAXone 1,000 mg SDV 1000 MG IVP (18:37)
[2025-04-09] MEDS: acetaminophen 325 mg Tablet 650 MG PO ×2 (18:37→23:50)
[2025-04-09] MEDS: sodium chloride 0.9% 1,000 ML 100 ML IV (21:59)
--- NOTE | 2025-04-09 22:10 | PM.HP ---
Providers/Chief Complaint Admitting Physician: Jean Paul Cox MD Primary Care Provider: Jocelyn Dawkins MD Chief Complaint: Diarhea / Dizzy History of Present Illness Carolin Kelly is a 64 year old female with a past medical history of diabetes mellitus on Invokana was presenting to the hospital today with 2 to 3 days of diarrhea and abdominal pain. Patient states that she was in her usual state of health until about 2 to 3 days ago. She had a recent swallow assessment ordered by her primary care physician due to a history of choking episode at a [employer] restaurant few months ago. She attributed the diarrhea to having received the barium tablets. She states she has pain in the suprapubic and lower abdominal area. She denies any dysuria. Stated that today she had a fever going up to 101 Fahrenheit therefore presented into the emergency room. In the ER she is noted to have a positive UA concerning for acute cystitis. There is tenderness to palpation over the lower abdomen. Additionally she has an elevated lactate which raises concern for possible infection. Chart notes a past history of pyelonephritis 1 year ago. Review of Systems General: Reports: 10 or more systems reviewed and unremarkable except in HPI and below Const: Reports: fever(s) and chills; Denies: body aches Eyes: Denies: change in vision, blurry vision or photophobia ENMT: Reports: hoarseness; Denies: throat pain, enlarged tonsils, odynophagia or nasal congestion Card: Denies: chest pain, palpitations, irregular heart rhythm, edema, swelling of feet/ankles, lightheadedness, pre-syncope, dyspnea on exertion or orthopnea Resp: Denies: dyspnea, productive cough, non-productive cough, wheezing, stridor, pain on inspiration, change in phlegm color, hemoptysis or chest congestion GI: Denies: abdominal pain, nausea, vomiting, hematemesis, coffee ground emesis, dysphagia, heartburn, diarrhea, constipation, GI cramping, change in stool character, hematochezia or melena : Denies: flank pain, difficulty voiding, dysuria, urinary frequency, urinary urgency, urinary hesitancy or hematuria Musc: Denies: neck pain, back pain, extremity pain, joint swelling, joint warmth or deformity Neuro: Denies: headache(s), numbness in extremities, weakness in extremities, sensory changes, difficulty walking, frequent falls, dizziness, vertigo, behavioral changes, Slurred speech present or seizure-like activity Psych: Denies: anxiety, depression, suicidal ideation or homicidal ideation Endo: Denies: polyuria, polydipsia, tired all the time, cold intolerance or hot flashes Mario/Lymph: Denies: easy bruising or easy bleeding Medications/Allergies Home Medications ?Medication ?Instructions ?Recorded ?Confirmed ?Last Taken ?Type aspirin 81 mg chewable tablet 81 mg PO DAILY 10/16/21 04/09/25 04/09/25 09:00 History atorvastatin 40 mg tablet 40 mg PO DAILY 10/16/21 04/09/25 04/09/25 09:00 History canagliflozin 300 mg tablet 300 mg PO DAILY #90 tabs 10/19/21 04/09/25 04/09/25 09:00 Rx (Invokana) sitagliptin phosphate 100 mg 100 mg PO DAILY #90 tabs 10/19/21 04/09/25 04/09/25 09:00 Rx tablet (Januvia) metformin 1,000 mg tablet 1,000 mg PO BID 05/18/23 04/09/25 04/09/25 09:00 History escitalopram oxalate 20 mg tablet 20 mg PO DAILY 03/25/24 04/09/25 04/09/25 09:00 History ferrous sulfate 325 mg (65 mg 325 mg PO BID 03/25/24 04/09/25 04/09/25 09:00 History iron) tablet (iron) cyanocobalamin (vitamin B-12) 1,000 mcg PO DAILY #60 caps 03/26/24 04/09/25 04/09/25 09:00 Rx 1,000 mcg capsule Allergies Allergy/AdvReac Type Severity Reaction Status Date / Time Sulfa (Sulfonamide Allergy Severe rash Verified 05/18/23 12:06 Antibiotics) PFSH Acute PFSH: Medical History Type 2 diabetes mellitus Family History Mother Cancer Social History Smoking and tobacco/nicotine status: former use of tobacco/nicotine Adopted: No Marital status: Number of children: 5 service: No Vitals/I&O/Wt Last Vital Signs Temp 101.5 F H 04/09/25 15:20 Pulse 91 04/09/25 20:38 Resp 16 04/09/25 20:38 BP 136/68 04/09/25 20:38 Pulse Ox 96 04/09/25 20:38 O2 Del Method Room Air 04/09/25 20:00 04/09/25 04/09/25 04/09/25 06:59 14:59 22:59 Intake Total 1000 / 1000 Balance 1000 / 1000 Weight last 48 hrs Weight 80.739 kg Physical Exam Narrative: General: No acute distress, AO x3 HEENT: PERRLA, pupils bilaterally equal and reactive, pallors not present Chest: Normal vesicular breath sounds, no added sounds, equal good air entry bilaterally CVS: S1-S2 regular, no murmurs, no tachycardia, no gallops, no rubs Abdomen: Soft, tenderness to palpation in the suprapubic area in the left lower quadrant. Neuro: No focal deficits, no facial deformity, AO x3, power 5/5 in all limbs Data 04/10/25 04:40 04/10/25 04:40 Micro: Microbiology 04/09/25 18:09 Blood Culture - Preliminary Blood SPECIMEN COLLECTED 04/09/25 18:11 Blood Culture - Preliminary Blood SPECIMEN COLLECTED A&P Assessment and plan (1) Colitis: (2) Elevated lactic acid level: (3) Cystitis: Plan 64-year-old lady presenting with fever chills 4 days of nausea and multiple episodes of diarrhea with generalized weakness. Found to have elevated lactic acid. CT of the abdomen and pelvis shows ascending colitis. Additionally UA noted to have greater than 100 WBC. Positive leukocyte Estrace raising concern for cystitis. Patient does have a history of Jose nephritis 1 year ago. Cannot conclusively exclude pyelonephritis currently given that she is tender in the left flank. Start ceftriaxone 1 g IV every 24 hours Start oral metronidazole 500 mg p.o. 3 times daily. Check C. difficile PCR from the stool No recent history of antibiotic use. Obtain urine and blood cultures IV fluids given in the ER, to continue at same rate. PDMP PDMP Reviewed: Not Reviewed Attestations Medical Necessity Statement*: greater than 2 midnight stay is currently anticipated. Coding Level of Care Code Acute Code for Chg Fwd Diagnoses Colitis K52.9 Elevated lactic acid level R79.89 Cystitis N30.90
[2025-04-09] MEDS: enoxaparin 40 mg/0.4 mL Syringe SUBCUT (22:34)
[2025-04-09] MEDS: ondansetron 2 mg/ML SDV 2 mL 4 MG IVP (22:34)
[2025-04-10] VITALS (9 sets, daily range): BP systolic 91–151; BP diastolic 43–71; PULSE 69–120; RESP 15–18; TEMP 36.7–38.9; O2SAT 92–96
[2025-04-10 06:07] LABS: Basophils # 0.1 10^3/uL (0.0-0.1); Basophils % 0.8 %; Eosinophils # 0.1 10^3/uL (0.0-0.8); Hematocrit 34.5 % (36-47); Lymphocytes % 15.9 %; Mean Corpuscular Hemoglobin 28.2 pg (27-33); Mean Corpuscular Volume 90.8 fl (85-98); Mean Platelet Volume 10.4 fL (7.4-10.4); Monocytes # 0.6 10^3/uL (0.2-0.9); Monocytes % 9.3 %; Neutrophils # 4.48 10^3/uL (1.8-7.7); Neutrophils % 72.7 %; Nucleated Red Blood Cells % 0 %; Platelet Count 156 10^3/cmm (157-399); Red Cell Distribution Width 14.5 % (12.1-15.1); White Blood Count 6.16 10^3/uL (3.29-11.43)
[2025-04-10 06:31] LABS: Alanine Aminotransferase 6 U/L (0-33); Albumin Level 3.3 g/dL (3.5-5.2); Alkaline Phosphatase 70 U/L (35-105); Anion Gap 17.4 (5-19); Aspartate Amino Transferase 14 U/L (0-32); Blood Urea Nitrogen 13 mg/dL (8-23); Calcium 8.3 mg/dL (8.5-10.5); Carbon Dioxide 22 mmol/L (22-29); Chloride 103 mmol/L (98-107); Creatinine Clr Calc Pharmacy 75.4334; Globulin 2.9 g/dL (1.3-4.6); Glomerular Filtration Rate 72.4 mL/min (90-130); Glucose 128 mg/dL (65-115); Magnesium 1.7 mg/dL (1.7-2.3); Osmolality Calculated 290 mOsm/kg (285-295); Potassium 3.4 mmol/L (3.5-5.1); Sodium 139 mmol/L (136-145); Total Bilirubin 0.4 mg/dL (0.15-1.2); Total Protein 6.2 g/dL (6.6-8.7)
[2025-04-10 06:44] LABS: Glucose Point of Care 135 mg/dL (70-110)
[2025-04-10] MEDS: pantoprazole DR 40 mg Tablet PO (09:15)
[2025-04-10] MEDS: metroNIDAZOLE 500 MG Tablet PO (09:15)
--- NOTE | 2025-04-10 10:55 | PC.CHAP ---
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 [] Patient/Family/Request visit [] Outpatient visit [] Follow-up visit [] Physician referral [] Code/Alert [x] Routine visit [] Staff referral [] Actively dying [] Patient sleeping [] Family support [] [] Out of room [] Palliative care [] [] Receiving care in room [] Pre-surgical visit [] Trauma [] Long length of stay [] ICU visit [] Other: Relational/Emotional Strength [] Patient feels connected with others/family/visitors/staff [] Distress [] Loneliness/isolation [] Abandonment Spirituality of Patient [] Person of Jeanie [] Attends Taoist of their Jeanie [] Believes in Prayer [] Reads Bible or Taoist materials [] There are Spiritual issues to be addressed Craft Manager Interventions [] Prayer [] Active listening [] Non-anxious presence [] Spiritual/emotional support [] Crisis/trauma care [] Spiritual counseling [] Bereavement support [] Provided bereavement packet [] Provided Bible/devotional materials [] Provided toy/stuffed animal, coloring book to patient or family member [] Provided Communion [] Anointing/[place] [] Salvation [] Completed spiritual assessment [] Other: Impact on Illness or Injury [] Angry [] Fearful [] Anxious [] Often cries [] Exhaustion [] Unable to work [] Unable to attend taoist [] Unable to walk/stand [] Unable to read [] Unable to drive [] Unable to eat/drink [] Unable to sleep [] Unable to be with family [] Patient intubated [] Other: Summary Didn't want to visit today but would like to visit a different day Time spent with patient
[2025-04-10 11:19] LABS: Glucose Point of Care 137 mg/dL (70-110)
[2025-04-10 12:00] LABS: C.Diff PCR (Lab) NEGATIVE (Negative)
[2025-04-10] MEDS: piperacillin-tazobactam 3.375 GM in sodium chloride 0.9% (plus) 50 ML IV ×2 (15:18→23:02)
[2025-04-10] MEDS: sodium chloride 0.9% 1,000 ML 100 ML IV (15:18)
[2025-04-10 16:25] LABS: Glucose Point of Care 133 mg/dL (70-110)
--- NOTE | 2025-04-10 18:37 | P.PN_ITS ---
Subjective 2 Subjective: Tmax 101.9 Fahrenheit today. Continues to have multiple episodes of diarrhea. C. difficile negative. Vitals/I&O/Wt Last Vital Signs Temp 99.6 F 04/10/25 16:22 Pulse 80 04/10/25 16:22 Resp 17 04/10/25 16:22 BP 129/71 04/10/25 16:22 Pulse Ox 93 04/10/25 16:22 O2 Del Method Room Air 04/10/25 16:22 04/10/25 04/10/25 04/10/25 06:59 14:59 22:59 Intake Total 240 / 2240 1600 / 1600 240 / 1840 Balance 240 / 2240 1600 / 1600 240 / 1840 Weight last 48 hrs Weight 83.915 kg Weight 83.96 kg Weight 80.739 kg Physical Exam 2 Narrative: General: No acute distress, AO x3 HEENT: PERRLA, pupils bilaterally equal and reactive, pallors not present Chest: Normal vesicular breath sounds, no added sounds, equal good air entry bilaterally CVS: S1-S2 regular, no murmurs, no tachycardia, no gallops, no rubs Abdomen: Soft, tenderness to palpation in the suprapubic area in the left lower quadrant. Neuro: No focal deficits, no facial deformity, AO x3, power 5/5 in all limbs Data 04/10/25 04:40 04/10/25 04:40 Micro: Microbiology 04/09/25 18:09 Blood Culture - Preliminary Blood NEGATIVE TO DATE 04/09/25 18:11 Blood Culture - Preliminary Blood NEGATIVE TO DATE 04/09/25 16:20 Urine Culture - Preliminary Urine,Clean Catch Gram Negative Rods A&P Assessment and plan (1) Colitis: (2) Elevated lactic acid level: (3) Cystitis: Plan 64-year-old lady presenting with fever chills 4 days of nausea and multiple episodes of diarrhea with generalized weakness. Found to have elevated lactic acid. CT of the abdomen and pelvis shows ascending colitis. Additionally UA noted to have greater than 100 WBC. Positive leukocyte Estrace raising concern for cystitis. Patient does have a history of Jose nephritis 1 year ago. Cannot conclusively exclude pyelonephritis currently given that she is tender in the left flank. Start ceftriaxone 1 g IV every 24 hours Start oral metronidazole 500 mg p.o. 3 times daily. Check C. difficile PCR from the stool No recent history of antibiotic use. Obtain urine and blood cultures IV fluids given in the ER, to continue at same rate. April 10, 2025 febrile this morning. No leukocytosis. Fever up to 101.9 Fahrenheit this morning. Does not have any significant relief from pain abdomen. Continues to have diarrhea. C. difficile PCR negative . Discontinued ceftriaxone and metronidazole today. Broaden antibiotic coverage to piperacillin/tazobactam and monitor for response. Urine culture showing gram-negative rods, will await identification PDMP PDMP Reviewed: Not Reviewed Attestations 2 Medical Necessity Statement*: Broaden antibiotic coverage. wait to be afberile, pending urine cx GNR identification Coding Level of Care Code Acute Code for g Fwd Diagnoses Colitis K52.9 Elevated lactic acid level R79.89 Cystitis N30.90
[2025-04-10 19:56] LABS: Glucose Point of Care 197 mg/dL (70-110)
[2025-04-10] MEDS: enoxaparin 40 mg/0.4 mL Syringe SUBCUT (21:59)
[2025-04-11] VITALS (7 sets, daily range): BP systolic 117–128; BP diastolic 54–68; PULSE 55–71; RESP 16–18; TEMP 36.6–36.8; O2SAT 95–98; BMI 33.6
[2025-04-11] MEDS: sodium chloride 0.9% 1,000 ML 100 ML IV (04:35)
[2025-04-11 05:40] LABS: Basophils % 0.6 %; Eosinophils # 0.2 10^3/uL (0.0-0.8); Eosinophils % 4.5 %; Hematocrit 33.2 % (36-47); Lymphocytes # 1.3 10^3/uL (0.8-4.8); Lymphocytes % 26.3 %; Mean Corpuscular HGB Conc 30.4 g/dL (30-55); Mean Corpuscular Hemoglobin 27.2 pg (27-33); Mean Corpuscular Volume 89.5 fl (85-98); Monocytes # 0.5 10^3/uL (0.2-0.9); Monocytes % 10.1 %; Neutrophils # 2.87 10^3/uL (1.8-7.7); Neutrophils % 58.1 %; Nucleated Red Blood Cells % 0 %; Platelet Count 139 10^3/cmm (157-399); Red Blood Count 3.71 10^6/uL (3.85-5.65); Red Cell Distribution Width 14.6 % (12.1-15.1); White Blood Count 4.94 10^3/uL (3.29-11.43)
[2025-04-11] MEDS: piperacillin-tazobactam 3.375 GM in sodium chloride 0.9% (plus) 50 ML IV ×3 (05:46→23:21)
[2025-04-11 06:06] LABS: Alanine Aminotransferase 9 U/L (0-33); Albumin Level 3.1 g/dL (3.5-5.2); Alkaline Phosphatase 52 U/L (35-105); Aspartate Amino Transferase 19 U/L (0-32); Blood Urea Nitrogen 11 mg/dL (8-23); Calcium 8.3 mg/dL (8.5-10.5); Carbon Dioxide 24 mmol/L (22-29); Creatinine Clr Calc Pharmacy 86.2096; Glomerular Filtration Rate 84.5 mL/min (90-130); Glucose 120 mg/dL (65-115); Total Bilirubin 0.3 mg/dL (0.15-1.2); Total Protein 6.1 g/dL (6.6-8.7)
[2025-04-11 06:28] LABS: Anion Gap 13.7 (5-19); Chloride 105 mmol/L (98-107); Osmolality Calculated 289 mOsm/kg (285-295); Potassium 3.7 mmol/L (3.5-5.1); Sodium 139 mmol/L (136-145)
[2025-04-11 06:35] LABS: Glucose Point of Care 121 mg/dL (70-110)
[2025-04-11] MEDS: acetaminophen 325 mg Tablet 650 MG PO (07:52)
[2025-04-11] MEDS: pantoprazole DR 40 mg Tablet PO (07:52)
[2025-04-11 11:21] LABS: Glucose Point of Care 155 mg/dL (70-110)
--- NOTE | 2025-04-11 13:53 | P.PN_ITS ---
Subjective 2 Subjective: Patient states that she is continue to have 2-3 episodes of diarrhea and abdominal pain is still persisting. Her fever curve mass appears to be improving after switching to piperacillin/tazobactam. Tmax of 99.7 Fahrenheit last evening. She is better hydrated. Discontinue IV fluids today. Vitals/I&O/Wt Last Vital Signs Temp 98 F 04/11/25 11:26 Pulse 60 04/11/25 11:26 Resp 18 04/11/25 11:26 BP 120/65 04/11/25 11:26 Pulse Ox 95 04/11/25 11:26 O2 Del Method Room Air 04/11/25 11:26 04/10/25 04/11/25 04/11/25 22:59 06:59 14:59 Intake Total 290 / 1890 1000 / 2890 1148.333 / 1148.333 Balance 290 / 1890 1000 / 2890 1148.333 / 1148.333 Weight last 48 hrs Weight 88.904 kg Weight 83.915 kg Weight 83.96 kg Weight 80.739 kg Physical Exam 2 Narrative: General: No acute distress, AO x3 HEENT: PERRLA, pupils bilaterally equal and reactive, pallors not present Chest: Normal vesicular breath sounds, no added sounds, equal good air entry bilaterally CVS: S1-S2 regular, no murmurs, no tachycardia, no gallops, no rubs Abdomen: Soft, tenderness to palpation in the suprapubic area in the left lower quadrant. Neuro: No focal deficits, no facial deformity, AO x3, power 5/5 in all limbs Data 04/11/25 05:05 04/11/25 05:05 Micro: Microbiology 04/09/25 16:20 Urine Culture - Final Urine,Clean Catch Klebsiella pneumoniae 04/09/25 18:09 Blood Culture - Preliminary Blood NEGATIVE TO DATE 04/09/25 18:11 Blood Culture - Preliminary Blood NEGATIVE TO DATE A&P Assessment and plan (1) Colitis: (2) Elevated lactic acid level: (3) Cystitis: Plan 64-year-old lady presenting with fever chills 4 days of nausea and multiple episodes of diarrhea with generalized weakness. Found to have elevated lactic acid. CT of the abdomen and pelvis shows ascending colitis. Additionally UA noted to have greater than 100 WBC. Positive leukocyte Estrace raising concern for cystitis. Patient does have a history of Jose nephritis 1 year ago. Cannot conclusively exclude pyelonephritis currently given that she is tender in the left flank. Start ceftriaxone 1 g IV every 24 hours Start oral metronidazole 500 mg p.o. 3 times daily. Check C. difficile PCR from the stool No recent history of antibiotic use. Obtain urine and blood cultures IV fluids given in the ER, to continue at same rate. April 10, 2025 febrile this morning. No leukocytosis. Fever up to 101.9 Fahrenheit this morning. Does not have any significant relief from pain abdomen. Continues to have diarrhea. C. difficile PCR negative . Discontinued ceftriaxone and metronidazole today. Broaden antibiotic coverage to piperacillin/tazobactam and monitor for response. Urine culture showing gram-negative rods, will await identification April 11, 2025 Fever curve is now improving. Tmax 99.7 last evening. Appears to be better fever curve since changed to piperacillin/tazobactam. Continues to have multiple episodes of diarrhea this morning. States that he still has abdominal pain. Mild tenderness of the right lower quadrant but otherwise improved compared to admission. urine culture showing Klebsiella pneumonia If continues to be afebrile next 24 hours, plan discharge on oral ciprofloxacin and metronidazole. Discontinue IV fluids PDMP PDMP Reviewed: Not Reviewed Attestations 2 Medical Necessity Statement*: Continue IV antibiotics today. If no fever in the next 24 hours, anticipate discharge on oral Cipro and Flagyl. Coding Level of Care Code Acute Code for [facility] Diagnoses Colitis K52.9 Elevated lactic acid level R79.89 Cystitis N30.90
[2025-04-11 16:36] LABS: Glucose Point of Care 159 mg/dL (70-110)
[2025-04-11 20:08] LABS: Glucose Point of Care 229 mg/dL (70-110)
[2025-04-11] MEDS: enoxaparin 40 mg/0.4 mL Syringe SUBCUT (20:39)
[2025-04-12 00:46] VITALS: BP 127/65; PULSE 60; RESP 18; TEMP 37; O2SAT 96
[2025-04-12 03:50] VITALS: BP 145/72; PULSE 59; RESP 16; TEMP 36.8; O2SAT 97
[2025-04-12] MEDS: piperacillin-tazobactam 3.375 GM in sodium chloride 0.9% (plus) 50 ML IV ×3 (06:04→22:51)
[2025-04-12 06:46] LABS: Glucose Point of Care 152 mg/dL (70-110)
[2025-04-12 08:00] VITALS: BP 148/69; PULSE 67; RESP 16; TEMP 36.6; O2SAT 95
[2025-04-12] MEDS: pantoprazole DR 40 mg Tablet PO (08:21)
[2025-04-12 09:20] LABS: Basophils % 0.8 %; Eosinophils # 0.2 10^3/uL (0.0-0.8); Eosinophils % 6.5 %; Hematocrit 34.5 % (36-47); Lymphocytes # 1.1 10^3/uL (0.8-4.8); Lymphocytes % 30.7 %; Mean Corpuscular HGB Conc 31.6 g/dL (30-55); Mean Corpuscular Volume 88.7 fl (85-98); Mean Platelet Volume 9.9 fL (7.4-10.4); Monocytes # 0.3 10^3/uL (0.2-0.9); Monocytes % 7.3 %; Neutrophils # 1.92 10^3/uL (1.8-7.7); Neutrophils % 54.1 %; Nucleated Red Blood Cells % 0 %; Platelet Count 183 10^3/cmm (157-399); Red Blood Count 3.89 10^6/uL (3.85-5.65); Red Cell Distribution Width 14.3 % (12.1-15.1); White Blood Count 3.55 10^3/uL (3.29-11.43)
[2025-04-12 09:41] LABS: Alanine Aminotransferase 11 U/L (0-33); Albumin Level 3.4 g/dL (3.5-5.2); Alkaline Phosphatase 61 U/L (35-105); Anion Gap 14.7 (5-19); Aspartate Amino Transferase 19 U/L (0-32); Blood Urea Nitrogen 8 mg/dL (8-23); Calcium 8.6 mg/dL (8.5-10.5); Carbon Dioxide 27 mmol/L (22-29); Chloride 103 mmol/L (98-107); Creatinine Clr Calc Pharmacy 87.1519; Globulin 3.3 g/dL (1.3-4.6); Glomerular Filtration Rate 84.5 mL/min (90-130); Glucose 253 mg/dL (65-115); Osmolality Calculated 299 mOsm/kg (285-295); Potassium 3.7 mmol/L (3.5-5.1); Sodium 141 mmol/L (136-145); Total Bilirubin 0.3 mg/dL (0.15-1.2); Total Protein 6.7 g/dL (6.6-8.7)
--- NOTE | 2025-04-12 09:48 | PC.CHAP ---
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 [] Patient/Family/Request visit [] Outpatient visit [] Follow-up visit [] Physician referral [] Code/Alert [x] Routine visit [] Staff referral [] Actively dying [] Patient sleeping [] Family support [] [] Out of room [] Palliative care [] [x] Receiving care in room [] Pre-surgical visit [] Trauma [] Long length of stay [] ICU visit [] Other: Relational/Emotional Strength [] Patient feels connected with others/family/visitors/staff [] Distress [] Loneliness/isolation [] Abandonment Spirituality of Patient [] Person of Jeanie [] Attends Episcopal of their Jeanie [] Believes in Prayer [] Reads Bible or Spiritism materials [] There are Spiritual issues to be addressed 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 Interventions [x] Prayer [] Active listening [] Non-anxious presence [] Spiritual/emotional support [] Crisis/trauma care [] Spiritual counseling [] Bereavement support [] Provided bereavement packet [] Provided Bible/devotional materials [] Provided toy/stuffed animal, coloring book to patient or family member [] Provided Communion [] Anointing/[place] [] Salvation [] Completed spiritual assessment [] Other: Impact on Illness or Injury [] Angry [] Fearful [] Anxious [] Often cries [] Exhaustion [] Unable to work [] Unable to attend mormon [] Unable to walk/stand [] Unable to read [] Unable to drive [] Unable to eat/drink [] Unable to sleep [] Unable to be with family [] Patient intubated [] Other: Summary Time spent with patient
[2025-04-12 11:15] LABS: Glucose Point of Care 217 mg/dL (70-110)
[2025-04-12 11:49] VITALS: BP 125/71; PULSE 57; RESP 18; TEMP 36.4; O2SAT 96
[2025-04-12 13:41] LABS: C.Diff PCR (Lab) NEGATIVE (Negative)
--- NOTE | 2025-04-12 14:18 | P.PN_ITS ---
Subjective 2 Subjective: seen this am has not had further BM since yesterday afebrile overnight feels slightly better Vitals/I&O/Wt Last Vital Signs Temp 97.6 F 04/12/25 11:49 Pulse 57 L 04/12/25 11:49 Resp 18 04/12/25 11:49 BP 125/71 04/12/25 11:49 Pulse Ox 96 04/12/25 11:49 O2 Del Method Room Air 04/12/25 11:49 04/11/25 04/12/25 04/12/25 22:59 06:59 14:59 Intake Total 530 / 1678.333 50 / 1728.333 410 / 410 Output Total 1200 / 1200 Balance 530 / 1678.333 50 / 1728.333 -790 / -790 Weight last 48 hrs Weight 85.729 kg Weight 88.904 kg Physical Exam 2 Narrative: General: No acute distress, AO x3 HEENT: PERRLA, pupils bilaterally equal and reactive, pallors not present Chest: Normal vesicular breath sounds, no added sounds, equal good air entry bilaterally CVS: S1-S2 regular, no murmurs, no tachycardia, no gallops, no rubs Abdomen: Soft, tenderness to palpation in the suprapubic area in the left lower quadrant. Neuro: No focal deficits, no facial deformity, AO x3, Data 04/12/25 08:59 04/12/25 08:59 Micro: Microbiology 04/09/25 16:20 Urine Culture - Final Urine,Clean Catch Klebsiella pneumoniae A&P Assessment and plan (1) Colitis: (2) Elevated lactic acid level: (3) Cystitis: Plan 64-year-old lady presenting with fever chills 4 days of nausea and multiple episodes of diarrhea with generalized weakness. Found to have elevated lactic acid. CT of the abdomen and pelvis shows ascending colitis. Additionally UA noted to have greater than 100 WBC. Positive leukocyte Estrace raising concern for cystitis. Patient does have a history of Jose nephritis 1 year ago. Cannot conclusively exclude pyelonephritis currently given that she is tender in the left flank. Start ceftriaxone 1 g IV every 24 hours Start oral metronidazole 500 mg p.o. 3 times daily. Check C. difficile PCR from the stool No recent history of antibiotic use. Obtain urine and blood cultures IV fluids given in the ER, to continue at same rate. April 10, 2025 febrile this morning. No leukocytosis. Fever up to 101.9 Fahrenheit this morning. Does not have any significant relief from pain abdomen. Continues to have diarrhea. C. difficile PCR negative . Discontinued ceftriaxone and metronidazole today. Broaden antibiotic coverage to piperacillin/tazobactam and monitor for response. Urine culture showing gram-negative rods, will await identification April 11, 2025 Fever curve is now improving. Tmax 99.7 last evening. Appears to be better fever curve since changed to piperacillin/tazobactam. Continues to have multiple episodes of diarrhea this morning. States that he still has abdominal pain. Mild tenderness of the right lower quadrant but otherwise improved compared to admission. urine culture showing Klebsiella pneumonia If continues to be afebrile next 24 hours, plan discharge on oral ciprofloxacin and metronidazole. Discontinue IV fluids 04/12/2025 afebrile overnight diarrhea improved c.diff pending plan to dc home in am if remains stable will dc on oral abx PDMP PDMP Reviewed: Not Reviewed Attestations 2 Medical Necessity Statement*: Continue IV antibiotics today. If no fever in the next 24 hours, anticipate discharge on oral Cipro and Flagyl. Diagnoses Colitis K52.9 Elevated lactic acid level R79.89 Cystitis N30.90
[2025-04-12 16:00] VITALS: BP 142/65; PULSE 54; RESP 16; TEMP 36.4; O2SAT 97
[2025-04-12 16:07] LABS: Glucose Point of Care 163 mg/dL (70-110)
[2025-04-12 20:00] VITALS: BP 145/68; PULSE 64; RESP 16; TEMP 36.8; O2SAT 97
[2025-04-12 20:49] LABS: Glucose Point of Care 188 mg/dL (70-110)
[2025-04-12] MEDS: enoxaparin 40 mg/0.4 mL Syringe SUBCUT (21:16)
[2025-04-13] VITALS: BP 140/64; PULSE 56; RESP 17; TEMP 36.7; O2SAT 97
[2025-04-13 04:00] VITALS: BP 136/70; PULSE 68; RESP 16; TEMP 36.8; O2SAT 95
[2025-04-13 05:02] LABS: Basophils % 0.6 %; Eosinophils # 0.3 10^3/uL (0.0-0.8); Eosinophils % 5.9 %; Hematocrit 32.5 % (36-47); Lymphocytes # 2.2 10^3/uL (0.8-4.8); Lymphocytes % 42.3 %; Mean Corpuscular HGB Conc 30.8 g/dL (30-55); Mean Corpuscular Hemoglobin 27.5 pg (27-33); Mean Corpuscular Volume 89.5 fl (85-98); Mean Platelet Volume 9.9 fL (7.4-10.4); Monocytes # 0.4 10^3/uL (0.2-0.9); Monocytes % 7.9 %; Neutrophils # 2.18 10^3/uL (1.8-7.7); Neutrophils % 42.9 %; Nucleated Red Blood Cells % 0 %; Platelet Count 194 10^3/cmm (157-399); Red Blood Count 3.63 10^6/uL (3.85-5.65); Red Cell Distribution Width 14.3 % (12.1-15.1); White Blood Count 5.08 10^3/uL (3.29-11.43)
[2025-04-13 05:44] LABS: Alanine Aminotransferase 10 U/L (0-33); Albumin Level 3.4 g/dL (3.5-5.2); Alkaline Phosphatase 54 U/L (35-105); Blood Urea Nitrogen 7 mg/dL (8-23); Calcium 8.6 mg/dL (8.5-10.5); Carbon Dioxide 26 mmol/L (22-29); Chloride 104 mmol/L (98-107); Creatinine Clr Calc Pharmacy 101.6772; Globulin 2.6 g/dL (1.3-4.6); Glucose 171 mg/dL (65-115); Magnesium 1.8 mg/dL (1.7-2.3); Osmolality Calculated 296 mOsm/kg (285-295); Sodium 142 mmol/L (136-145); Total Bilirubin 0.2 mg/dL (0.15-1.2)
[2025-04-13 05:48] LABS: Anion Gap 15.8 (5-19); Aspartate Amino Transferase 18 U/L (0-32); Potassium 3.8 mmol/L (3.5-5.1)
[2025-04-13] MEDS: piperacillin-tazobactam 3.375 GM in sodium chloride 0.9% (plus) 50 ML IV (06:11)
[2025-04-13 06:34] LABS: Glucose Point of Care 172 mg/dL (70-110)
[2025-04-13 07:46] VITALS: BP 149/71; PULSE 54; RESP 16; TEMP 36.7; O2SAT 97
--- NOTE | 2025-04-13 07:54 | P.DS_ITS ---
Discharge Providers Date of Admission: 04/09/25 18:59 Date of Discharge: April 13, 2025 Attending Provider at Admission: Jean Paul Cox MD Attending Provider at Discharge: Iqra Menon MD Primary Care Provider: Jocelyn Dawkins MD Diagnoses at Discharge Discharge Diagnosis (1) Colitis: Status: Acute (2) Elevated lactic acid level: Status: Resolved (3) Cystitis: Status: Resolved Reason for Visit Reason for Visit: Diarhea / Dizzy Hospital Course Hospital Course Patient presented to the hospital with fever chills and 4 days of nausea and multiple episodes of diarrhea generalized weakness. Found to have elevated lactic acid and ascending colitis on CT abdomen pelvis. She was maintained on ceftriaxone and Flagyl. C. difficile negative. She was afebrile for 48 hours and fever curve improved. Urine culture also showing Klebsiella pneumonia. Patient discharged home on ciprofloxacin and Flagyl for another 4 days to complete 7-day course. Her symptoms have resolved on day of discharge and feels better. Diarrhea is also resolved. Abdominal pain is improved. Physical Exam Narrative: General: No acute distress, AO x3 HEENT: PERRLA, pupils bilaterally equal and reactive, pallors not present Chest: Normal vesicular breath sounds, no added sounds, equal good air entry bilaterally CVS: S1-S2 regular, no murmurs, no tachycardia, no gallops, no rubs Abdomen: Soft, nontender, bowel sounds positive. Neuro: No focal deficits, no facial deformity, AO x3, Discharge Data Studies Completed and Pending Completed Studies During Hospitalization Category Date Time Status CT abdomen pelvis wo con [id number] Stat Cat Scan 04/09/25 17:13 Completed XR chest 1V portable [id number] Stat Exams 04/09/25 16:02 Completed Pending at discharge Category Date Time Status Blood Culture Stat Lab 04/09/25 18:09 Results Radiology Impressions Chest X-Ray 04/09/25 16:02 IMPRESSION: No radiographic evidence for acute cardiopulmonary disease. Abdomen/Pelvis CT 04/09/25 17:13 IMPRESSION: 1. Apparent abnormal thickening of the wall of the ascending colon despite incomplete distension on this exam. Findings are suspicious for colitis. Please correlate clinically. 2. Prominent small bowel loops throughout the abdomen and pelvis without significant bowel dilatation or evidence for obstruction. 3. Cholelithiasis. 4. Other chronic findings described above. Laboratory Results WBC 5.08 10^3/uL (3.29-11.43) 04/13/25 04:27 RBC 3.63 10^6/uL (3.85-5.65) L 04/13/25 04:27 Hgb 10.00 g/dL (11.27-16.99) L 04/13/25 04:27 Hct 32.5 % (36-47) L 04/13/25 04:27 MCV 89.5 fl (85-98) 04/13/25 04:27 MCH 27.5 pg (27-33) 04/13/25 04:27 MCHC 30.8 g/dL (30-55) 04/13/25 04:27 RDW 14.3 % (12.1-15.1) 04/13/25 04:27 Plt Count 194 10^3/cmm (157-399) 04/13/25 04:27 MPV 9.9 fL (7.4-10.4) 04/13/25 04:27 Neut % (Auto) 42.9 % 04/13/25 04:27 Lymph % (Auto) 42.3 % 04/13/25 04:27 [place] % (Auto) 7.9 % 04/13/25 04:27 Eos % (Auto) 5.9 % 04/13/25 04:27 Baso % (Auto) 0.6 % 04/13/25 04:27 Neut # (Auto) 2.18 10^3/uL (1.8-7.7) 04/13/25 04:27 Lymph # (Auto) 2.2 10^3/uL (0.8-4.8) 04/13/25 04:27 [place] # (Auto) 0.4 10^3/uL (0.2-0.9) 04/13/25 04:27 Eos # (Auto) 0.3 10^3/uL (0.0-0.8) 04/13/25 04:27 Baso # (Auto) 0.0 10^3/uL (0.0-0.1) 04/13/25 04:27 Nucleated RBC % (auto) 0 % 04/13/25 04:27 Nucleated RBCs # 0.0 /100WBC 04/13/25 04:27 Sodium 142 mmol/L (136-145) 04/13/25 04:27 Potassium 3.8 mmol/L (3.5-5.1) 04/13/25 04:27 Chloride 104 mmol/L (98-107) 04/13/25 04:27 Carbon Dioxide 26 mmol/L (22-29) 04/13/25 04:27 Anion Gap 15.8 (5-19) 04/13/25 04:27 BUN 7 mg/dL (8-23) L 04/13/25 04:27 Creatinine 0.6 mg/dL (0.5-0.9) 04/13/25 04:27 GFR Calculation 101.0 mL/min (90-130) 04/13/25 04:27 Glucose 171 mg/dL (65-115) H 04/13/25 04:27 POC Glucose 172 mg/dL (70-110) H 04/13/25 06:22 Calculated Osmolality 296 mOsm/kg (285-295) H 04/13/25 04:27 Lactic Acid 1.8 mmol/L (0.5-2.2) 04/09/25 18:11 Calcium 8.6 mg/dL (8.5-10.5) 04/13/25 04:27 Magnesium 1.8 mg/dL (1.7-2.3) 04/13/25 04:27 Total Bilirubin 0.2 mg/dL (0.15-1.2) 04/13/25 04:27 AST 18 U/L (0-32) 04/13/25 04:27 ALT 10 U/L (0-33) 04/13/25 04:27 Alkaline Phosphatase 54 U/L (35-105) 04/13/25 04:27 Total Protein 6.0 g/dL (6.6-8.7) L 04/13/25 04:27 Albumin 3.4 g/dL (3.5-5.2) L 04/13/25 04:27 Globulin 2.6 g/dL (1.3-4.6) 04/13/25 04:27 Lipase 63 U/L (13-60) H 04/09/25 16:00 Urine Color Yellow (Yellow) 04/09/25 16:20 Urine Appearance Clear (CLEAR) 04/09/25 16:20 Urine pH 5.5 (5-7) 04/09/25 16:20 Ur Specific [place] 1.023 (1.005-1.030) 04/09/25 16:20 Urine Protein Negative (Negative) 04/09/25 16:20 Urine Glucose (UA) 2+ (Normal) H 04/09/25 16:20 Urine Ketones Negative (Negative) 04/09/25 16:20 Urine Blood 1+ (Negative) A 04/09/25 16:20 Urine Nitrate Positive (Negative) A 04/09/25 16:20 Urine Bilirubin Negative (Negative) 04/09/25 16:20 Urine Urobilinogen 0.2 mg/dL (Negative) 04/09/25 16:20 Ur Leukocyte Esterase Trace (Negative) A 04/09/25 16:20 Urine RBC 6-10 /hpf (0-2) 04/09/25 16:20 Urine WBC 21-50 /hpf (0-5) H 04/09/25 16:20 Ur Squamous Epith Cells 0-5 /hpf (0-5) 04/09/25 16:20 Amorphous Sediment Not Reportable 04/09/25 16:20 Urine Bacteria 1+ /hpf (NONE) H 04/09/25 16:20 Hyaline Casts 0-4 /lpf H 04/09/25 16:20 Urine Yeast 1+ /hpf H 04/09/25 16:20 C. difficile (PCR) Negative (Negative) 04/12/25 12:09 Influenza A (PCR) Negative (Negative) 04/09/25 16:23 Influenza Type B (PCR) Negative (Negative) 04/09/25 16:23 RSV (PCR) Negative (Negative) 04/09/25 16:23 SARS-CoV-2 (PCR) Negative (Negative) 04/09/25 16:23 Vitals Last Vital Signs Temp 98.0 F 04/13/25 07:46 Pulse 54 L 04/13/25 07:46 Resp 16 04/13/25 07:46 BP 149/71 04/13/25 07:46 Pulse Ox 97 04/13/25 07:46 O2 Del Method Room Air 04/13/25 07:46 Discharge Plan Discharge Patient Disposition: Home Condition: Stable Prescriptions: New ciprofloxacin HCl [Cipro] 500 mg tablet 500 mg PO BID Qty: 8 0RF metronidazole 500 mg tablet 500 mg PO BID Qty: 8 0RF Continued aspirin 81 mg tablet,chewable 81 mg PO DAILY atorvastatin 40 mg tablet 40 mg PO DAILY Januvia 100 mg tablet 100 mg PO DAILY Qty: 90 3RF Invokana 300 mg tablet 300 mg PO DAILY Qty: 90 3RF metformin 1,000 mg tablet 1,000 mg PO BID ferrous sulfate [iron] 325 mg (65 mg iron) Tablet 325 mg PO BID escitalopram oxalate 20 mg tablet 20 mg PO DAILY cyanocobalamin (vitamin B-12) 1,000 mcg capsule 1,000 mcg PO DAILY Qty: 60 0RF Discharge Orders: Discharge Order (Routine); Ordered 04/13/25 Ordered By: Iqra Menon Referrals: Jocelyn Dawkins MD [Primary Care Provider, [facility]] - 04/19/25 10:45 am Discharge Diet: GI Soft Discharge Activity: Resume usual activity Patient Instructions: Ciprofloxacin (By mouth), Metronidazole (By mouth), Urinary Tract Infection in Women (GEN), Opioid Safety, Pain Management Discharge Attestations Time Spent in Discharge Care*: less than 30 min Status at Discharge: Cognitive status at discharge: cognitively intact , Behavioral status at discharge: cooperative , Quality Metrics Clinical Quality Measures [ No reported AMI, CVA or VTE this stay] Coding Level of Care Code Acute Code for Chg Fwd Diagnoses Colitis K52.9 Elevated lactic acid level R79.89 Cystitis N30.90
[2025-04-13] MEDS: pantoprazole DR 40 mg Tablet PO (08:49)
--- NOTE | 2025-04-13 09:43 | PC.CHAP ---
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 [] Patient/Family/Request visit [] Outpatient visit [] Follow-up visit [] Physician referral [] Code/Alert [] Routine visit [] Staff referral [] Actively dying [] Patient sleeping [] Family support [] [] Out of room [] Palliative care [] [x] Receiving care in room [] Pre-surgical visit [] Trauma [] Long length of stay [] ICU visit [] Other: Relational/Emotional Strength [] Patient feels connected with others/family/visitors/staff [] Distress [] Loneliness/isolation [] Abandonment Spirituality of Patient [] Person of Jeanie [] Attends Quaker of their Jeanie [] Believes in Prayer [] Reads Bible or Episcopalian materials [] There are Spiritual issues to be addressed Other Wood 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 Machine 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 Interventions [] Prayer [] Active listening [] Non-anxious presence [] Spiritual/emotional support [] Crisis/trauma care [] Spiritual counseling [] Bereavement support [] Provided bereavement packet [] Provided Bible/devotional materials [] Provided toy/stuffed animal, coloring book to patient or family member [] Provided Communion [] Anointing/[place] [] Salvation [] Completed spiritual assessment [] Other: Impact on Illness or Injury [] Angry [] Fearful [] Anxious [] Often cries [] Exhaustion [] Unable to work [] Unable to attend adventist [] Unable to walk/stand [] Unable to read [] Unable to drive [] Unable to eat/drink [] Unable to sleep [] Unable to be with family [] Patient intubated [] Other: Summary Time spent with patient
--- NOTE | 2025-04-13 10:15 | PC.NURSE ---
Discharge instructions provided to pt at this time. No questions or concerns at this time. to drive home. To private vehicle via wheelchair with all belongings.
[2025-04-13 10:17] VITALS: BP 149/71; PULSE 54; RESP 16; TEMP 36.6; O2SAT 97
== END 2025-04-13 10:19 | disposition home or self-care (01) | DRG 392 ==
LOC: ER 18:14 → MEDSURG 18:59
PROVIDERS: Emergency Medicine; Family Medicine; Student in an Organized Health Care Education/Training Program; Admitting Provider Student in an Organized Health Care Education/Training Program; Emergency Provider Emergency Medicine; PCP Family Medicine; Visit Provider Internal Medicine
DX: K52.9 Noninfective gastroenteritis and colitis, unspecified (principal); E87.20 Acidosis, unspecified; N30.00 Acute cystitis without hematuria; N12 Tubulo-interstitial nephritis, not specified as acute or chronic; B96.1 Klebsiella pneumoniae [K. pneumoniae] as the cause of diseases classified elsewhere; I95.9 Hypotension, unspecified; E11.9 Type 2 diabetes mellitus without complications; Z79.82 Long term (current) use of aspirin; Z79.84 Long term (current) use of oral hypoglycemic drugs; Z87.891 Personal history of nicotine dependence
CPT/HCPCS: 36415; 36416; 71045; 74176; 80053; 81001; 82962; 83605; 83690; 83735; 85025; 87040; 87077; 87086; 87186; 87493; 87637; 96361; 96372; 96374; 99285; J0696; J1650; J2405; J2543; J7030; J9999

== ENCOUNTER 2025-05-31 08:36 | Outpatient (CLI) | payer MEDICAID, SELFPAY ==
--- NOTE | 2025-05-31 | MM_ITS ---
WS: [id number] SCREENING DIGITAL TOMOSYNTHESIS MAMMOGRAM WITH CAD HISTORY: ANNUAL SCREENING COMPARISON: 05/27/2024, 05/02/2023, 04/25/2022 Bilateral CC and MLO with tomosynthesis views submitted. Synthetic mammography reviewed. Computer aided detection analyzed. Breast composition: There are scattered areas of fibroglandular density. No suspicious masses, microcalcifications or architectural distortion. Mild bilateral breast arterial calcifications. MM/MM scr BI tomosynthesis [id number] IMPRESSION: BI-RADS: 2 - Benign. FOLLOW UP: 1 Year Follow-up
== END 2025-05-31 08:37 | disposition home or self-care (01) ==
LOC: RAD 08:37
PROVIDERS: PCP Family Medicine; Visit Provider Family Medicine
DX: Z12.31 Encounter for screening mammogram for malignant neoplasm of breast (principal); R92.323 Mammographic fibroglandular density, bilateral breasts; R92.1 Mammographic calcification found on diagnostic imaging of breast
CPT/HCPCS: 77063; 77067